=== PATIENT | female | born 1950 | race Caucasian/White ===

== ENCOUNTER 2016-11-22 11:55 | Inpatient (IN) | payer OTHER ==
[~2016-11-22] VITALS: Ht 160 cm; Wt 62.3 kg
[~2016-11-22 11:55] MED LIST: ADV25050 INH; ALBU8.5H5 IH; GEMF600T60 PO; HYDR12.58 PO
[2016-11-22 11:56] VITALS: Ht 160 cm; Wt 62.3 kg
[2016-11-22] MEDS ORDERED: morphine 4 MG/ML VIAL IV STA (12:44)
[2016-11-22] MEDS ORDERED: ONDANSETRON 4 MG INJ IV STA (12:44)
[2016-11-22] MEDS ORDERED: SOD CHLORIDE 0.9% 1,000 ML IV STA (12:44)
--- NOTE | 2016-11-22 12:54 | ERD ---
ER Documentation Chief Complaint Date/Time DATE: 11/22/16 TIME: 12:51 Chief Complaint Complains of abdominal pain HPI 66-year-old female with a history of hypertension, hyperlipidemia presents with lower abdominal pain for the past 2 days. She describes as diffuse, in the suprapubic region, with vomiting one time. She denies fevers or chills, chest pain or shortness of breath. Patient reports that she went to an urgent care and was told to go to the emergency department for evaluation and further testing. ROS All systems reviewed and are negative except as per history of present illness. Medications Home Meds Reported Medications Albuterol Sulfate* (Albuterol Sulfate* HFA) 8.5 Gm Hfa.aer.ad, 2 PUFF IH Q4H Y for WHEEZING AND SOB, EA 06/05/14 Hydrochlorothiazide* (Hydrochlorothiazide*) 12.5 Mg Tablet, 12.5 MG PO DAILY, TAB 05/19/14 Gemfibrozil* (Gemfibrozil*) 600 Mg Tablet, 600 MG PO BID, TAB 05/19/14 Salmeterol Xinaf/Fluticasone* (Advair*) 250-50 Diskus Inhaler, 1 INH INH BID, INH 05/19/14 Allergies Allergies: Coded Allergies: No Known Allergy (Unverified , 06/05/14) PMhx/Soc History of Surgery: Yes (right mastectomy) Anesthesia Reaction: No Hx Neurological Disorder: No Hx Respiratory Disorders: No Hx Cardiac Disorders: Yes (htn,high cholesterol) Hx Psychiatric Problems: No Hx Miscellaneous Medical Probl: No Hx Alcohol Use: No Hx Substance Use: No Hx Tobacco Use: No Smoking Status: Former smoker Physical Exam Vitals Vital Signs Date Time Temp Pulse Resp B/P Pulse Ox O2 Delivery O2 Flow Rate FiO2 11/22/16 11:56 99.7 104 20 156/73 95 Physical Exam General: Well-developed, well-nourished. The patient appears in no acute distress. HEENT: Head is normocephalic, atraumatic. No scleral icterus. It is pupils are equal, round, and reactive. Oral mucous membranes are moist. No pharyngeal erythema. Neck: Supple. Nontender. Lungs: Clear to auscultation. Normal air movement. Heart: Regular rate and rhythm. S1 and S2 are normal. No murmurs, gallops, or rubs. Abdomen: Soft, no masses, Suprapubic tenderness, as well as the left lower quadrant, no rebound or guarding, no peritoneal signs, nondistended. Bowel sounds are normoactive. Extremities: No clubbing or cyanosis. Normal pulses. Moving extremities x 4. No weakness. Neurologic: Alert and oriented 3. No focal deficits. Skin: Normal turgor. No rash or lesions. Result Diagram: 11/22/16 1240 11/22/16 1240 Results 24 hrs Laboratory Tests Test 11/22/16 12:40 11/22/16 13:30 White Blood Count 17.410^3/ul Red Blood Count 4.1510^6/ul Hemoglobin 12.9g/dl Hematocrit 38.2% Mean Corpuscular Volume 92.0fl Mean Corpuscular Hemoglobin 31.1pg Mean Corpuscular Hemoglobin Concent 33.8g/dl Red Cell Distribution Width 13.2% Platelet Count 12547^3/UL Mean Platelet Volume 9.7fl Neutrophils % 84.9% Lymphocytes % 8.2% Monocytes % 6.0% Eosinophils % 0.1% Basophils % 0.3% Nucleated Red Blood Cells % 0.0/100WBC Neutrophils # 14.810^3/ul Lymphocytes # 1.410^3/ul Monocytes # 1.110^3/ul Eosinophils # 0.010^3/ul Basophils # 0.110^3/ul Nucleated Red Blood Cells # 0.010^3/ul Urine Color YELLOW Urine Clarity CLEAR Urine pH 5.0 Urine Specific [place] 1.024 Urine Ketones NEGATIVEmg/dL Urine Nitrite NEGATIVEmg/dL Urine Bilirubin NEGATIVEmg/dL Urine Urobilinogen 2+mg/dL Urine Leukocyte Esterase 2+Isaías/ul Urine Microscopic RBC 3/HPF Urine Microscopic WBC 5/HPF Urine Squamous Epithelial Cells FEW/HPF Urine Renal Epithelial Cells FEW/HPF Urine Mucus FEW/HPF Urine Hemoglobin 1+mg/dL Urine Glucose NEGATIVEmg/dL Urine Total Protein 2+mg/dl Sodium Level 143mmol/L Potassium Level 3.6mmol/L Chloride Level 100mmol/L Carbon Dioxide Level 30mmol/L Anion Gap 17 Blood Urea Nitrogen 13mg/dl Creatinine 1.00mg/dl Glucose Level 105mg/dl Calcium Level 9.8mg/dl Total Bilirubin 0.6mg/dl Direct Bilirubin 0.00mg/dl Indirect Bilirubin 0.6mg/dl Aspartate Amino Transf (AST/SGOT) 21IU/L Alanine Aminotransferase (ALT/SGPT) 33IU/L Alkaline Phosphatase 95IU/L Total Protein 9.1g/dl Albumin 4.7g/dl Globulin 4.40g/dl Albumin/Globulin Ratio 1.06 Lipase 96U/L Lactic Acid Level 0.9mmol/L Current Medications Medications (Trade) Dose Ordered Sig/Tootie Route PRN Reason Start Time Stop Time Status Last Admin Dose Admin Sodium Chloride (NS) 1,000 ml @ 1,000 mls/hr Q1H STAT IV 11/22/16 12:44 11/22/16 13:43 DC 11/22/16 12:51 Morphine Sulfate (morphine) 4 mg ONCE STAT IV 11/22/16 12:44 11/22/16 12:45 DC 11/22/16 12:51 Ondansetron HCl 4 mg 4 mg ONCE STAT IV 11/22/16 12:44 11/22/16 12:45 DC 11/22/16 12:51 Sodium Chloride (NS) 1,000 ml @ 1,000 mls/hr Q1H ONCE IV 11/22/16 13:30 11/22/16 14:29 DC 11/22/16 13:53 IV Flush 10 ml 10 ml STK-MED ONCE .ROUTE 11/22/16 13:52 11/22/16 13:53 DC 11/22/16 14:02 Sodium Chloride (NS) 100 ml @ ud STK-MED ONCE .ROUTE 11/22/16 13:52 11/22/16 13:53 DC 11/22/16 14:02 Iohexol 150 ml 150 ml STK-MED ONCE .ROUTE 11/22/16 13:52 11/22/16 13:53 DC 11/22/16 14:03 Sodium Chloride 1,000 ml @ 1,000 mls/hr Q1H ONCE IV 11/22/16 14:30 11/22/16 15:29 Piperacillin Sod/ Tazobactam Sod (Zosyn 3.375gm/ 100 ml (Pmx)) 100 ml @ 200 mls/hr ONCE ONCE IVPB 11/22/16 14:30 11/22/16 14:59 Patient Name MINDA PASTRANA Study Date 11/22/2016 1:57 PM Patient 1950 Accession No. [id number] Referring Physician DEENA HOYOS PA-C PROCEDURE: CT OF ABDOMEN AND PELVIS ~ CLINICAL INDICATION: Abdominal pain, nausea, vomiting and leukocytosis. TECHNIQUE: CT scan of the abdomen and pelvis with IV contrast. Coronal and sagittal reformatted images were obtained from the axial source images. DLP (mGy.cm): 465.43 CTDlvol (mGy) : 8.66 IV contrast: 90 ml of Omnipaque-300 One or more of the following dose reduction techniques were used: Automated exposure control, adjustment of the mA and/or kV according to patient size or use of iterative reconstruction technique. COMPARISON: CT of the abdomen and pelvis from 06/07/2014. ~ FINDINGS: The appendix is inflamed and enlarged measuring up to 14 mm associated inflammatory changes. There is no periappendiceal abscess or free air. There is no bowel obstruction. The liver is fatty. The kidneys, gallbladder, spleen, pancreas and adrenal glands are all unremarkable. There is no dilation of the biliary tree. There is no abdominal wall hernia or adenopathy. The urinary bladder and the uterus are unremarkable. No ovarian mass is seen. Lung bases are clear. The abdominal aorta has a normal caliber. Right breast implant is partially seen. There are degenerative changes of the lumbar spine. IMPRESSION: 1. Acute appendicitis without periappendiceal abscess. 2. Fatty liver. Critical result of acute appendicitis was reported to MERLYN Geller at 2:25 PM on 11/22 RPTAT: [facility] 12-lead EKG(interpreted by supervising physician): Dr Gardner Rate/Rhythm: sinus tachycardia with rate of 102 QRS, ST, T-waves: Nonspecific ST changes not consistent with acute ischemia, no intervals, no dysrhythmias, no ectopy Impression: No evidence of ischemia or arrhythmia Procedures/MDM 66-year-old female presents with lower abdominal pain for 2 days with fever, anorexia nausea vomiting, CT abdomen pelvis shows a dilated appendix up to 14 mm consistent with acute appendicitis without any periappendiceal abscess or perforation. She had a low-grade temperature tachycardia, with leukocytosis with a white count of 17,000. She was treated emergency department with pain medication including morphine, and was given a fluid bolus and started with Zosyn antibiotics. She was kept during the emergency department course n.p.o., with last p.o. intake at 9 AM this morning. Case was presented to my attending physician Dr. Peterson who agrees with workup treatment, she will be admitted to hospital for surgical evaluation. Patient's blood pressure was elevated (>120/80) but appears stable without evidence of hypertension emergency or urgency. The patient was counseled about the risks of hypertension and urged to pursue outpatient monitoring and therapy within a week with their primary care physician. Departure Diagnosis: Primary Impression: Appendicitis Appendicitis type: acute appendicitis Acute appendicitis type: unspecified acute appendicitis type Qualified Code: K35.80 - Acute appendicitis, unspecified acute appendicitis type Additional Impressions: Leukocytosis SIRS (systemic inflammatory response syndrome) Condition: Stable (Water) ROMAIN GELLER PA-C Nov 22, 2016 12:54
[2016-11-22 12:58] LABS: BASOPHIL # 0.1 10^3/ul (0.0-0.1); BASOPHILS % 0.3 % (0.0-2.0); EOSINOPHILS % 0.1 % (0.0-7.0); HEMATOCRIT 38.2 % (37.0-47.0); HEMOGLOBIN 12.9 g/dl (12.0-16.0); LYMPHOCYTES # 1.4 10^3/ul (0.8-2.9); LYMPHOCYTES % 8.2 % (15.0-51.0); MEAN CORPUSCULAR HEMOGLOBIN 31.1 pg (29.0-33.0); MEAN CORPUSCULAR HGB CONC 33.8 g/dl (32.0-37.0); MEAN PLATELET VOLUME 9.7 fl (7.4-10.4); MONOCYTE # 1.1 10^3/ul (0.3-0.9); NEUTROPHIL # 14.8 10^3/ul (1.6-7.5); NEUTROPHILS % 84.9 % (39.0-77.0); PLATELET COUNT 285 10^3/UL (140-415); RED BLOOD COUNT 4.15 10^6/ul (4.20-5.40); RED CELL DISTRIBUTION WIDTH 13.2 % (11.5-14.5); WHITE BLOOD COUNT 17.4 10^3/ul (4.8-10.8)
[2016-11-22 13:08] LABS: ADD UMIC YES; UR ASCORBIC ACID NEGATIVE (NEGATIVE); UR BILIRUBIN (Dip) NEGATIVE (NEGATIVE); UR BLOOD (Dip) 1+ mg/dL (NEGATIVE); UR CLARITY CLEAR (CLEAR); UR COLOR YELLOW (YELLOW); UR GLUCOSE (Dip) NEGATIVE (NEGATIVE); UR KETONES (Dip) NEGATIVE (NEGATIVE); UR LEUKOCYTE ESTERASE (Dip) 2+ Leu/ul (NEGATIVE); UR MUCUS FEW /HPF (NONE SEEN); UR NITRITE (Dip) NEGATIVE (NEGATIVE); UR RBC 3 /HPF (0-5); UR RENAL EPITHELIAL CELL FEW /HPF (NONE SEEN); UR SPECIFIC GRAVITY (Dip) 1.024 (1.003-1.030); UR SQUAMOUS EPITHELIAL CELL FEW /HPF (FEW); UR TOTAL PROTEIN (Dip) 2+ mg/dl (NEGATIVE); UR UROBILINOGEN (Dip) 2+ mg/dL (NEGATIVE)
[2016-11-22 13:18] LABS: ALBUMIN 4.7 g/dl (3.3-4.9); ALBUMIN/GLOBULIN RATIO 1.06; BILIRUBIN,INDIRECT 0.6 mg/dl (0-1.1); BILIRUBIN,TOTAL 0.6 mg/dl (0.2-1.3); CALCIUM 9.8 mg/dl (8.4-10.2); POTASSIUM 3.6 mmol/L (3.5-5.1); TOTAL PROTEIN 9.1 g/dl (6.1-8.1)
[2016-11-22] MEDS ORDERED: SOD CHLORIDE 0.9% 1,000 ML IV ONE ×2 (13:30→14:30)
[2016-11-22] MEDS ORDERED: IOHEXOL 300MG/ML 150 ML BTL ONE (13:52)
[2016-11-22] MEDS ORDERED: SOD CHLORIDE 0.9% 100 ML ONE (13:52)
[2016-11-22] MEDS ORDERED: PIPER-TAZO 3.375 GM IV (PMX) 100 ML IVPB ONE (14:30)
--- NOTE | 2016-11-22 14:34 | RADRPT ---
PROCEDURE: CT OF ABDOMEN AND PELVIS CLINICAL INDICATION: Abdominal pain, nausea, vomiting and leukocytosis. TECHNIQUE: CT scan of the abdomen and pelvis with IV contrast. Coronal and sagittal reformatted imag es were obtained from the axial source images. DLP (mGy.cm): 465.43 CTDlvol (mGy) : 8.66 IV contrast: 90 ml of Omnipaque-300 One or more of the following dose reduction techniques were used: Automated exposure control, adjus tment of the mA and/or kV according to patient size or use of iterative reconstruction technique. COMPARISON: CT of the abdomen and pelvis from 06/07/2014. FINDINGS: The appendix is inflamed and enlarged measuring up to 14 mm associated inflammatory changes. There i s no periappendiceal abscess or free air. There is no bowel obstruction. The liver is fatty. The kidneys, gallbladder, spleen, pancreas and adrenal glands are all unremarkab le. There is no dilation of the biliary tree. There is no abdominal wall hernia or adenopathy. The urinary bladder and the uterus are unremarkable. No ovarian mass is seen. Lung bases are clear. The abdominal aorta has a normal caliber. Right breast implant is partially seen. There are degenerative changes of the lumbar spine. IMPRESSION: 1. Acute appendicitis without periappendiceal abscess. 2. Fatty liver. Critical result of acute appendicitis was reported to MERLYN Geller at 2:25 PM on 11/22/2016 RPTAT: [facility] .Ford Mann MD, MD Date Time Electronically viewed and signed by .Ford Mann MD, MD on 11/22/2016 14:33 .Z/
[2016-11-22 14:55] LABS: INR 1.03; PARTIAL THROMBOPLASTIN TIME 31.7 Sec (25.0-35.0); PROTIME 13.5 Sec (12.2-14.2); PT RATIO 1.1
[2016-11-22] MEDS ORDERED: D5W-0.45 NACL + KCL 20 MEQ 1,000 ML IV SCH (15:13)
--- NOTE | 2016-11-22 15:13 | EN ---
Date/Time of Note Date/Time of Note DATE: 11/22/16 TIME: 15:06 ER Progress Note DOCUMENTS REVIEWED: ED nurse, prior records PROCEDURES: EKG: Time: 14: 32. Sinus tachycardia. Ventricular rate 102. Nonspecific ST changes. No acute ST segment elevation or depression. Normal DC and QRS. No ectopy. EP interpretation: Abnormal ECG. CT OF ABDOMEN AND PELVIS CLINICAL INDICATION: Abdominal pain, nausea, vomiting and leukocytosis. TECHNIQUE: CT scan of the abdomen and pelvis with IV contrast. Coronal and sagittal reformatted images were obtained from the axial source images. DLP (mGy.cm): 465.43 CTDlvol (mGy) : 8.66 IV contrast: 90 ml of Omnipaque-300 One or more of the following dose reduction techniques were used: Automated exposure control, adjustment of the mA and/or kV according to patient size or use of iterative reconstruction technique. COMPARISON: CT of the abdomen and pelvis from 06/07/2014. FINDINGS: The appendix is inflamed and enlarged measuring up to 14 mm associated inflammatory changes. There is no periappendiceal abscess or free air. There is no bowel obstruction. The liver is fatty. The kidneys, gallbladder, spleen, pancreas and adrenal glands are all unremarkable. There is no dilation of the biliary tree. There is no abdominal wall hernia or adenopathy. The urinary bladder and the uterus are unremarkable. No ovarian mass is seen. Lung bases are clear. The abdominal aorta has a normal caliber. Right breast implant is partially seen. There are degenerative changes of the lumbar spine. IMPRESSION: 1. Acute appendicitis without periappendiceal abscess. 2. Fatty liver. Critical result of acute appendicitis was reported to MERLYN Geller at 2:25 PM on 11/22 RPTAT: [facility] .Ford Mann MD, MD Date Time Electronically viewed and signed by .Ford Mann MD, on 11/22/2016 14:33 Chest x-ray: AP portable: Cardiac silhouette is normal. The costophrenic angles are clear. No abnormalities of the bony thorax. No effusions or infiltrates. EP interpretation: No acute disease. [employer] DECISION MAKIN-year-old female, hypertensive, hyperlipidemic with history of breast cancer status post right mastectomy presents to the ED complaining of a 2 day history of worsening lower abdominal pain with nausea and vomiting. physical examination she is afebrile with mild distress due to pain. There is left greater than right lower quadrant tenderness but no rebound or guarding. Bowel sounds are present. CT reveals acute appendicitis without perforation or abscess. Leukocytosis with WBC of 17,400. Zosyn given. Last PO at 9:00AM. Patient with acute appendicitis will be admitted for urgent surgical evaluation. Counseled patient and family regarding diagnosis, diagnostic results and plan for admission. CALLS/CONSULTS: Time 14:35. Dr. Badillo Recommends admission and surgical consultation. CALLS/CONSULTS: Time: 15:00, Dr. Barnard. Will consult. PATIENT CARE TRANSITIONED: Time: 15:00. SAMUEL Galaviz MD Nov 22, 2016 15:13
[2016-11-22] MEDS ORDERED: ACETAMINOPHEN 325 MG TAB PO PRN (15:30)
[2016-11-22] MEDS ORDERED: ONDANSETRON 4 MG INJ IV PRN ×2 (15:30→17:30)
[2016-11-22] MEDS ORDERED: LISI1TAB4 PO (15:50)
[2016-11-22] MEDS ORDERED: CALC600T24 PO (15:51)
[2016-11-22] MEDS ORDERED: ASC500 PO (15:51)
[2016-11-22] MEDS ORDERED: VITA150T PO (15:52)
--- NOTE | 2016-11-22 16:07 | RADRPT ---
PROCEDURE: CHEST RADIOGRAPH CLINICAL INDICATION: Abdominal pain. TECHNIQUE: Single frontal view of the chest were obtained. COMPARISON: 06/05/2014. FINDINGS: There is no consolidation or pleural effusion. There is no pneumothorax. The cardiomediastinal stru ctures unremarkable. The visualized bony structures are unremarkable. IMPRESSION: Unremarkable single-view chest radiograph. RPTAT: [facility] .Ford Mann MD, MD Date Time Electronically viewed and signed by .Ford Mann MD, on 11/22/2016 16:06 .Z/
[2016-11-22 17:15] VITALS: BP 142/67; PULSE 86; RESP 18
--- NOTE | 2016-11-22 17:18 | HP ---
Date/Time of Note Date/Time of Note DATE: 11/22/16 TIME: 17:07 Assessment/Plan VTE Prophylaxis VTE Prophylaxis Intervention: SCD's Lines/Catheters Urinary Cath still in place: No Assessment/Plan Assessment/Plan 66-year-old female with: 1. Acute appendicitis: Per clinical and radiographic findings, patient with white blood cell count of 17 and abdominal pain with anorexia. Continue Zosyn, continue IV fluids, keep patient n.p.o.. Chest x-ray, EKG within normal limits, no previous history of cardiac disease. Patient is considered a low risk for complication based on her current clinical status and history. No additional studies needed. General surgery consult, Dr. Barnard, follow-up recommendations. Patient kept n.p.o. for possible surgical intervention. Of note she has voiced that she seems to have a hard time with anesthesia, after her last surgery she was having nausea vomiting for approximately 3 days secondary to anesthesia. 2. Right breast cancer, status post mastectomy and reconstructive surgery. Stable 3. Hypertension: Resume home medication once able to take p.o. 4. Hyperlipidemia: Resume gemfibrozil once able to take p.o., check fasting lipid panel in a.m. Prophylaxis: Pepcid for GI prophylaxis, SCDs for DVT prophylaxis Disposition: Keep n.p.o., IV fluids, IV antibiotics, surgical evaluation pending for possible surgical intervention. HPI/ROS Admit Date/Time Admit Date/Time Hx of Present Illness Chief complaint: Abdominal pain History of presenting illness: This is a 66-year-old female with history of right breast cancer status post mastectomy in 2014 followed by reconstructive surgery by 2017, no previous chemotherapy needed, has been in her usual state of health until approximately 2 days ago when she started having abdominal pain. Patient reports that she had periumbilical pain at first 48 hours ago progressed to be mostly on her lower abdomen and by today he was more on the right lower quadrant area. She has been having nausea and vomiting at onset of the pain, since then she has had nausea, decreased p.o. intake, anorexia, fevers up to 101.6 over the past 48 hours. In the emergency department she had a CAT scan of the abdomen and pelvis and was diagnosed with acute appendicitis with no perforation. Patient is started on Zosyn along with IV fluids, she will be kept n.p.o. General surgery consult pending. Dr. Barnard was contacted in the emergency department by the ER physician Dr. Nicholas DOE Constitutional: febrile Eyes: no complaints ENT: no complaints Respiratory: no complaints Cardiovascular: no complaints Gastrointestinal: decreased appetite, nausea, pain (Right lower quadrant more pronounced than left lower), vomiting Genitourinary: no complaints Musculoskeletal: no complaints Skin: no complaints Neurologic: no complaints Endocrine: no complaints Lymphatic: no complaints Psychological: no complaints PMH/Family/Social Past Medical History Right breast cancer Past Surgical History Status post radical right mastectomy 2014 followed by reconstructive surgery and implant in February 2016 remotely Family History Significant Family History: no pertinent family hx Social History Alcohol Use: none Smoking Status: Former smoker Drug Use: none Exam/Review of Systems Vital Signs Vitals Vital Signs Date Time Temp Pulse Resp B/P Pulse Ox O2 Delivery O2 Flow Rate FiO2 11/22/16 11:56 99.7 104 20 156/73 95 Exam Constitutional: alert, oriented, well developed Psych: no complaints Head: normocephalic Eyes: nl conjunctiva ENMT: nl external ears & nose, nl lips & teeth, nl nasal mucosa & septum Respiratory: clear to auscultation, normal air movement Cardiovascular: nl pulses, regular rate and rhythm Gastrointestinal: bowel sounds (Hypoactive), soft, tender (Right lower quadrant more pronounced in left lower quadrant) Musculoskeletal: nl extremities to inspection, nl gait and stance Extremities: normal pulses, other (No edema, clubbing or cyanosis) Neurological: [employer]AGE [employer] II-XII intact, nl mental status, nl speech, nl strength Labs Result Diagram: 11/22/16 1240 11/22/16 1240 Medications Medications Current Medications Potassium Chloride/Dextrose/ Sod Cl (D5-1/2ns + KCl 20 Meq) 1,000 ml @ 125 mls/ hr Q8H IV ; Start 11/22/16 at 15:13; Stop 11/22/16 at 23:12 Albuterol (Ventolin Hfa) 2 puff Q4H PRN INH WHEEZING AND SOB; Start 11/22/16 at 17:30; Status UNV Salmeterol Xinafoate/ Fluticasone (Advair 250/50 Diskus) 1 inh BID INH ; Start 11/22/16 at 21:00; Status UNV Ondansetron HCl (Zofran Inj) 4 mg Q6H PRN IV NAUSEA AND/OR VOMITING; Start at 17:30; Status UNV Acetaminophen (Tylenol Tab) 650 mg Q6H PRN PO PAIN LEVEL 1-3 OR FEVER; Start 11/22/16 at 17:30; Status UNV Acetaminophen (Tylenol Supp) 650 mg Q6H PRN W[place] PAIN LEVEL 1-3 OR FEVER; Start 11/22/16 at 17:30; Status UNV Morphine Sulfate (morphine) 2 mg Q4H PRN IV SEVERE PAIN LEVEL 7-10; Start at 17:30; Status UNV Famotidine 20 mg 20 mg Q12 IV ; Start 11/22/16 at 21:00; Status UNV Potassium Chloride/Dextrose/ Sod Cl 1,000 ml @ 100 mls/hr Q10H IV ; Start at 17:30; Status UNV Piperacillin Sod/ Tazobactam Sod (Zosyn 3.375gm/ 100 ml (Pmx)) 100 ml @ 200 mls /hr Q8 IVPB ; Start 11/22/16 at 22:00; Status UNV Procedures Procedures PROCEDURE: CT OF ABDOMEN AND PELVIS CLINICAL INDICATION: Abdominal pain, nausea, vomiting and leukocytosis. TECHNIQUE: CT scan of the abdomen and pelvis with IV contrast. Coronal and sagittal reformatted images were obtained from the axial source images. DLP (mGy.cm): 465.43 CTDlvol (mGy) : 8.66 IV contrast: 90 ml of Omnipaque-300 One or more of the following dose reduction techniques were used: Automated exposure control, adjustment of the mA and/or kV according to patient size or use of iterative reconstruction technique. COMPARISON: CT of the abdomen and pelvis from 06/07/2014. FINDINGS: The appendix is inflamed and enlarged measuring up to 14 mm associated inflammatory changes. There is no periappendiceal abscess or free air. There is no bowel obstruction. The liver is fatty. The kidneys, gallbladder, spleen, pancreas and adrenal glands are all unremarkable. There is no dilation of the biliary tree. There is no abdominal wall hernia or adenopathy. The urinary bladder and the uterus are unremarkable. No ovarian mass is seen. Lung bases are clear. The abdominal aorta has a normal caliber. Right breast implant is partially seen. There are degenerative changes of the lumbar spine. IMPRESSION: 1. Acute appendicitis without periappendiceal abscess. 2. Fatty liver. Critical result of acute appendicitis was reported to MERLYN Geller at 2:25 PM on 11/22 RPTAT: [facility] .Ford Mann MD, MD Date Time Electronically viewed and signed by .Ford Mann MD, on 11/22/2016 14:33 EKG: Sinus rhythm, slight tachycardia, no acute ischemic or chronic ischemic changes .Z/ CC: ROMAIN GELLER PA-C PROCEDURE: CHEST RADIOGRAPH CLINICAL INDICATION: Abdominal pain. TECHNIQUE: Single frontal view of the chest were obtained. COMPARISON: 06/05/2014. FINDINGS: There is no consolidation or pleural effusion. There is no pneumothorax. The cardiomediastinal structures unremarkable. The visualized bony structures are unremarkable. IMPRESSION: Unremarkable single-view chest radiograph. RPTAT: [facility] .Ford Mann MD, Date Time Electronically viewed and signed by .Ford Mann MD, on 11/22/2016 16:06 CRISTINA ESQUIVEL Nov 22, 2016 17:17
[2016-11-22] MEDS ORDERED: ACETAMINOPHEN 650 MG SUPP PR PRN (17:30)
[2016-11-22] MEDS ORDERED: ALBUTEROL 18 GM INHALER INH PRN (17:30)
[2016-11-22] MEDS ORDERED: hydrALAzine 20 MG INJ IV PRN (17:30)
[2016-11-22] MEDS ORDERED: NACL 0.9% 3 ML SYG IV SCH (17:30)
[2016-11-22] MEDS ORDERED: morphine 2 MG INJ IV PRN (17:30)
[2016-11-22] MEDS: D5W-0.45 NACL + KCL 20 MEQ 1,000 ML IV SCH (17:40)
--- NOTE | 2016-11-22 18:27 | CONS ---
Date/Time of Note Date/Time of Note DATE: 11/22/16 TIME: 18:19 Assessment/Plan Assessment/Plan Chief Complaint/Hosp Course 1. Abdominal pain with leukocytosis and CT diagnosis of acute appendicitis. Patient was offered operative versus medical treatment. She was given risks and his alternatives. She was also advised about the recurrence rate if she continues with medical treatment. She was also advised that if medical treatment does not improve her situation she may need to proceed with surgery or she may perforate in the meantime. At this time once again she continues to desire medical management and avoid operative treatment. -IV antibiotics -IV fluids -Out of bed ambulate 2. Hypertension -Diet and medication optimization 3. Hyperlipidemia -Diet and medication optimization 4. History of breast cancer with mastectomy and reconstruction -Routine follow-ups with oncology and her primary surgeon Thank you very much for consulting me this patient's care, Problems: Consultation Date/Type/Reason Admit Date/Time Date of Consultation: Nov 22, 2016 Type of Consultation: General surgical Reason for Consultation Abdominal pain Acute appendicitis Leukocytosis Referring Provider: SAMUEL EDOUARD MD Hx of Present Illness Hiwot Dhaliwal is a 66yo female started having periumbilical abdominal pain 2 days ago which has now progressed to the lower abdomen bilaterally. She has been having nausea and vomiting at onset of the pain, since then she has had nausea, decreased p.o. intake, anorexia, fevers up to 101.6 over the past 48 hours. In the emergency department she had a CAT scan of the abdomen and pelvis and was diagnosed with acute appendicitis with no perforation. She has had chills as well. Denies any chest pain or shortness of breath. Denies any cough, seizure, visual or neurologic changes. Surgical consult was obtained for further evaluation. 12 point review of systems negative unless addressed in HPI Eyes: no complaints ENT: no complaints Respiratory: no complaints Cardiovascular: no complaints Gastrointestinal: decreased appetite, nausea, pain (Right lower quadrant more pronounced than left lower), vomiting Genitourinary: no complaints Musculoskeletal: no complaints Skin: no complaints Neurologic: no complaints Lymphatic: no complaints Psychological: no complaints Past Medical History Right breast cancer Hypertension Hyperlipidemia Leukocytosis with acute appendicitis Past Surgical History Status post radical right mastectomy 2014 followed by reconstructive surgery and implant in February 2016 Family History Significant Family History: no pertinent family hx Social History Alcohol Use: none Smoking Status: Former smoker Drug Use: none Exam/Review of Systems Vital Signs Vitals Vital Signs Date Time Temp Pulse Resp B/P Pulse Ox O2 Delivery O2 Flow Rate FiO2 11/22/16 11:56 99.7 104 20 156/73 95 Exam Constitutional: alert, oriented, No distress Psych: nl mood/affect, No anxiety, No confusion Head: atraumatic, normocephalic Eyes: EOMI, PERRL, nl conjunctiva, No icteric ENMT: mucosa pink and moist, nl external ears & nose, nl lips & teeth Neck: non-tender, supple, No jvd Respiratory: normal air movement, No congested cough, No labored breathing Cardiovascular: regular rate and rhythm, No edema Gastrointestinal: soft, tender, No firm, No rebound or guarding Musculoskeletal: nl extremities to inspection, nl gait and stance, No joint tenderness Extremities: normal pulses, No calf tenderness, No cyanosis Neurological: nl mental status, nl speech, nl strength Skin: nl turgor, No diaphoresis, No ecchymosis, No rash or lesions Lymph: nl lymph nodes, nontender Results Result Diagram: 11/22/16 1240 11/22/16 1240 Results 24 hrs Laboratory Tests Test 11/22/16 12:40 11/22/16 12:47 11/22/16 13:30 White Blood Count 17.4 #H Red Blood Count 4.15 L Hemoglobin 12.9 # Hematocrit 38.2 # Mean Corpuscular Volume 92.0 Mean Corpuscular Hemoglobin 31.1 Mean Corpuscular Hemoglobin Concent 33.8 Red Cell Distribution Width 13.2 Platelet Count 285 Mean Platelet Volume 9.7 # Neutrophils % 84.9 H Lymphocytes % 8.2 L Monocytes % 6.0 Eosinophils % 0.1 Basophils % 0.3 Nucleated Red Blood Cells % 0.0 Neutrophils # 14.8 H Lymphocytes # 1.4 Monocytes # 1.1 H Eosinophils # 0.0 Basophils # 0.1 Nucleated Red Blood Cells # 0.0 Urine Color YELLOW Urine Clarity CLEAR Urine pH 5.0 Urine Specific [place] 1.024 Urine Ketones NEGATIVE Urine Nitrite NEGATIVE Urine Bilirubin NEGATIVE Urine Urobilinogen 2+ H Urine Leukocyte Esterase 2+ H Urine Microscopic RBC 3 Urine Microscopic WBC 5 Urine Squamous Epithelial Cells FEW Urine Renal Epithelial Cells FEW A Urine Mucus FEW A Urine Hemoglobin 1+ H Urine Glucose NEGATIVE Urine Total Protein 2+ H Sodium Level 143 Potassium Level 3.6 Chloride Level 100 Carbon Dioxide Level 30 Anion Gap 17 H Blood Urea Nitrogen 13 Creatinine 1.00 Glucose Level 105 Calcium Level 9.8 Total Bilirubin 0.6 Direct Bilirubin 0.00 Indirect Bilirubin 0.6 Aspartate Amino Transf (AST/SGOT) 21 Alanine Aminotransferase (ALT/SGPT) 33 Alkaline Phosphatase 95 Total Protein 9.1 H Albumin 4.7 Globulin 4.40 H Albumin/Globulin Ratio 1.06 Lipase 96 Prothrombin Time 13.5 Prothrombin Time Ratio 1.1 INR International Normalized Ratio 1.03 Activated Partial Thromboplast Time 31.7 Lactic Acid Level 0.9 Medications Medications Current Medications Salmeterol Xinafoate/ Fluticasone (Advair 250/50 Diskus) 1 inh BID INH ; Start 11/22/16 at 21:00 Ondansetron HCl (Zofran Inj) 4 mg Q6H PRN IV NAUSEA AND/OR VOMITING; Start at 17:30 Acetaminophen (Tylenol Tab) 650 mg Q6H PRN PO PAIN LEVEL 1-3 OR FEVER; Start 11/22/16 at 17:30 Acetaminophen (Tylenol Supp) 650 mg Q6H PRN [place] PAIN LEVEL 1-3 OR FEVER; Start 11/22/16 at 17:30 Morphine Sulfate (morphine) 2 mg Q4H PRN IV SEVERE PAIN LEVEL 7-10; Start at 17:30 Famotidine 20 mg 20 mg Q12 IV ; Start 11/22/16 at 21:00 Potassium Chloride/Dextrose/ Sod Cl 1,000 ml @ 100 mls/hr Q10H IV Last administered on 11/22/16t 17:40; Admin Dose 100 MLS/HR; Start 11/22/16 at 17: 30 Piperacillin Sod/ Tazobactam Sod (Zosyn 3.375gm/ 100 ml (Pmx)) 100 ml @ 200 mls /hr Q8 IVPB ; Start 11/22/16 at 22:00 Hydralazine HCl (Apresoline) 10 mg Q8H PRN IV SBP GREATER THAN 160; Start at 17:30 RONY PERRY MD Nov 22, 2016 18:26
[2016-11-22 20:00] VITALS: BP 139/66; RESP 20
[2016-11-22] MEDS: FAMOTIDINE 20 MG INJ IV SCH (20:12)
[2016-11-22] MEDS: ACETAMINOPHEN 325 MG TAB PO PRN (20:12)
[2016-11-22] MEDS: SALMETEROL/FLUTICASONE 250/50 INHA INH SCH (21:00)
[2016-11-22] MEDS: PIPER-TAZO 3.375 GM IV (PMX) 100 ML IVPB SCH (21:29)
[2016-11-23 02:00] VITALS: BP 125/59; PULSE 69; RESP 18; RESP 20
[2016-11-23] MEDS: D5W-0.45 NACL + KCL 20 MEQ 1,000 ML IV SCH ×3 (03:30→16:55)
[2016-11-23] MEDS: SALMETEROL/FLUTICASONE 250/50 INHA INH SCH ×3 (04:19→19:50)
[2016-11-23] MEDS: PIPER-TAZO 3.375 GM IV (PMX) 100 ML IVPB SCH ×3 (05:15→21:36)
[2016-11-23 06:24] LABS: BASOPHILS % 0.3 % (0.0-2.0); EOSINOPHILS # 0.1 10^3/ul (0.0-0.5); EOSINOPHILS % 0.8 % (0.0-7.0); HEMATOCRIT 31.6 % (37.0-47.0); HEMOGLOBIN 10.5 g/dl (12.0-16.0); LYMPHOCYTES # 1.8 10^3/ul (0.8-2.9); LYMPHOCYTES % 13.3 % (15.0-51.0); MEAN CORPUSCULAR HEMOGLOBIN 31.1 pg (29.0-33.0); MEAN CORPUSCULAR HGB CONC 33.2 g/dl (32.0-37.0); MEAN CORPUSCULAR VOLUME 93.5 fl (82.0-101.0); MEAN PLATELET VOLUME 10.6 fl (7.4-10.4); MONOCYTE # 0.8 10^3/ul (0.3-0.9); MONOCYTES % 6.3 % (0.0-11.0); NEUTROPHIL # 10.4 10^3/ul (1.6-7.5); NEUTROPHILS % 78.9 % (39.0-77.0); PLATELET COUNT 228 10^3/UL (140-415); RED BLOOD COUNT 3.38 10^6/ul (4.20-5.40); RED CELL DISTRIBUTION WIDTH 13.4 % (11.5-14.5); WHITE BLOOD COUNT 13.2 10^3/ul (4.8-10.8)
[2016-11-23 07:13] LABS: ALBUMIN 3.6 g/dl (3.3-4.9); BILIRUBIN,INDIRECT 0.5 mg/dl (0-1.1); BILIRUBIN,TOTAL 0.5 mg/dl (0.2-1.3); CALCIUM 8.5 mg/dl (8.4-10.2); CREATININE 0.92 mg/dl (0.44-1.00); POTASSIUM 3.8 mmol/L (3.5-5.1); TOTAL PROTEIN 7.2 g/dl (6.1-8.1)
[2016-11-23 07:51] VITALS: BP 101/52; RESP 19
[2016-11-23 08:03] LABS: PHOSPHORUS 2.5 mg/dl (2.5-4.9)
[2016-11-23] MEDS: FAMOTIDINE 20 MG INJ IV SCH ×2 (08:20→19:50)
[2016-11-23 14:00] VITALS: BP 124/58; RESP 18
--- NOTE | 2016-11-23 15:31 | PN ---
Date/Time of Note Date/Time of Note DATE: 11/23/16 TIME: 15:07 Assessment/Plan VTE Prophylaxis VTE Prophylaxis Intervention: SCD's Lines/Catheters IV Catheter Type (from Nrs): Peripheral IV Urinary Cath still in place: No Assessment/Plan Assessment/Plan 66-year-old female with: 1. Acute appendicitis: Per clinical and radiographic findings, patient hesitant to undergo surgery yesterday, she was given option to stay on IV antibiotics. WBC trending down, still with lower abdominal pain, right> left, she will readdress options with Dr. Barnard today, from the medical standpoint were advocating for laparoscopic appendectomy but the patient again was hesitant yesterday, she seems to be more receptive today. Continue Zosyn, continue IV fluids, keep patient n.p.o. for possible surgical intervention or until cleared to eat from surgical standpoint. Chest x-ray, EKG within normal limits, no previous history of cardiac disease. Patient is considered a low risk for complication based on her current clinical status and history. No additional studies needed. General surgery consult, Dr. Barnard, follow-up recommendations. Of note she has voiced that she seems to have a hard time with anesthesia, after her last surgery she was having nausea vomiting for approximately 3 days secondary to anesthesia. 2. Right breast cancer, status post mastectomy and reconstructive surgery. Stable 3. Hypertension: Resume home medication once able to take p.o. 4. Hyperlipidemia: Resume gemfibrozil once able to take p.o., Prophylaxis: Pepcid for GI prophylaxis, SCDs for DVT prophylaxis Disposition: Keep n.p.o., IV fluids, IV antibiotics, surgical evaluation pending for possible surgical intervention versus medical management only if patient keeps refusing surgery. Subjective 24 Hr Interval Summary Free Text/Dictation Patient doing fairly well, she is having abdominal pain still, lower abdomen, WBC trending down. She is n.p.o. for now, she is on IV antibiotics, she will re-discussed options with Dr. Barnard regarding laparoscopic appendectomy. Continue IV antibiotics for now Exam/Review of Systems Vital Signs Vitals Vital Signs Date Time Temp Pulse Resp B/P Pulse Ox O2 Delivery O2 Flow Rate FiO2 11/23/16 14:00 98.1 67 18 124/58 97 11/23/16 02:00 Room Air Intake and Output 11/22/16 11/22/16 11/23/16 15:00 23:00 07:00 Intake Total 100 ml 1400 ml Output Total 900 ml Balance 100 ml 500 ml Exam Constitutional: alert, oriented, well developed Respiratory: clear to auscultation, normal air movement Cardiovascular: nl pulses, regular rate and rhythm Gastrointestinal: soft, tender (Lower abdomen, more pronounced right lower, patient feels bloated) Musculoskeletal: nl extremities to inspection Extremities: normal pulses, other (No edema, clubbing or cyanosis) Neurological: 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 ARCHITECT II-XII intact, nl mental status, nl speech, nl strength Results Result Diagram: 11/23/1645411/23/16454 Results 24 hrs Laboratory Tests Test 11/23/16 04:55 White Blood Count 13.2 #H Red Blood Count 3.38 L Hemoglobin 10.5 L Hematocrit 31.6 L Mean Corpuscular Volume 93.5 Mean Corpuscular Hemoglobin 31.1 Mean Corpuscular Hemoglobin Concent 33.2 Red Cell Distribution Width 13.4 Platelet Count 228 Mean Platelet Volume 10.6 H Neutrophils % 78.9 H Lymphocytes % 13.3 L Monocytes % 6.3 Eosinophils % 0.8 Basophils % 0.3 Nucleated Red Blood Cells % 0.0 Neutrophils # 10.4 H Lymphocytes # 1.8 Monocytes # 0.8 Eosinophils # 0.1 Basophils # 0.0 Nucleated Red Blood Cells # 0.0 Sodium Level 143 Potassium Level 3.8 Chloride Level 108 Carbon Dioxide Level 26 Anion Gap 13 Blood Urea Nitrogen 8 Creatinine 0.92 Glucose Level 119 Calcium Level 8.5 Phosphorus Level 2.5 Magnesium Level 2.0 Total Bilirubin 0.5 Direct Bilirubin 0.00 Indirect Bilirubin 0.5 Aspartate Amino Transf (AST/SGOT) 24 Alanine Aminotransferase (ALT/SGPT) 28 Alkaline Phosphatase 120 Total Protein 7.2 # Albumin 3.6 # Globulin 3.60 H Albumin/Globulin Ratio 1.00 Triglycerides Level 188 H Cholesterol Level 168 LDL Cholesterol, Calculated 102 HDL Cholesterol 28 L Cholesterol/HDL Ratio 6.0 Medications Medications Current Medications Salmeterol Xinafoate/ Fluticasone (Advair 250/50 Diskus) 1 inh BID INH Last administered on 11/23/16t 04:19; Admin Dose 1 INH; Start 11/22/16 at 21:00 Ondansetron HCl (Zofran Inj) 4 mg Q6H PRN IV NAUSEA AND/OR VOMITING; Start at 17:30 Acetaminophen (Tylenol Tab) 650 mg Q6H PRN PO PAIN LEVEL 1-3 OR FEVER Last administered on 11/22/16 20:12; Admin Dose 650 MG; Start 11/22/16 at 17:30 Acetaminophen (Tylenol Supp) 650 mg Q6H PRN [place] PAIN LEVEL 1-3 OR FEVER; Start 11/22/16 at 17:30 Morphine Sulfate (morphine) 2 mg Q4H PRN IV SEVERE PAIN LEVEL 7-10 Last administered on 11/23/16 12:44; Admin Dose 2 MG; Start 11/22/16 at 17:30 Famotidine 20 mg 20 mg Q12 IV Last administered on 11/23/16 08:20; Admin Dose 20 MG; Start 11/22/16 at 21:00 Potassium Chloride/Dextrose/ Sod Cl 1,000 ml @ 100 mls/hr Q10H IV Last administered on 11/23/16 04:12; Admin Dose 100 MLS/HR; Start 11/22/16 at 17: 30 Piperacillin Sod/ Tazobactam Sod (Zosyn 3.375gm/ 100 ml (Pmx)) 100 ml @ 200 mls /hr Q8 IVPB Last administered on 11/23/16 13:54; Admin Dose 200 MLS/HR; Start 11/22/16 at 22:00 Hydralazine HCl (Apresoline) 10 mg Q8H PRN IV SBP GREATER THAN 160; Start at 17:30 CRISTINA ESQUIVEL Nov 23, 2016 15:18
[2016-11-23 20:00] VITALS: BP 150/67; RESP 17
--- NOTE | 2016-11-23 23:57 | PN ---
Date/Time of Note Date/Time of Note DATE: 11/23/16 TIME: 23:57 Assessment/Plan Lines/Catheters IV Catheter Type (from [facility]): Peripheral IV [facility] in Place (from [facility]): No Assessment/Plan Chief Complaint/Hosp Course 1. Abdominal pain with leukocytosis and CT diagnosis of acute appendicitis. Patient was offered operative versus medical treatment. She was given risks and his alternatives. She was also advised about the recurrence rate if she continues with medical treatment. She was also advised that if medical treatment does not improve her situation she may need to proceed with surgery or she may perforate in the meantime. At this time once again she continues to desire medical management and avoid operative treatment. -IV antibiotics -IV fluids -Out of bed ambulate 2. Hypertension -Diet and medication optimization 3. Hyperlipidemia -Diet and medication optimization 4. History of breast cancer with mastectomy and reconstruction -Routine follow-ups with oncology and her primary surgeon Thank you very much for consulting me this patient's care, Problems: Exam/Review of Systems Vital Signs Vitals Vital Signs Date Time Temp Pulse Resp B/P Pulse Ox O2 Delivery O2 Flow Rate FiO2 11/23/16 20:00 98.8 70 17 150/67 95 11/23/16 02:00 Room Air Intake and Output 11/22/16 11/22/16 11/23/16 15:00 23:00 07:00 Intake Total 100 ml 1400 ml Output Total 900 ml Balance 100 ml 500 ml Results Result Diagram: 11/23/16 0455 11/23/16 0455 RONY PERRY MD Nov 23, 2016 23:57
--- NOTE | 2016-11-24 00:09 | PN ---
Date/Time of Note Date/Time of Note DATE: 11/24/16 TIME: 00:06 Assessment/Plan Lines/Catheters IV Catheter Type (from [facility]): Peripheral IV [facility] in Place (from [facility]): No Assessment/Plan Chief Complaint/Hosp Course 1. Abdominal pain with leukocytosis and CT diagnosis of acute appendicitis. Patient was offered operative versus medical treatment. At this time she continues to desire medical management and avoid operative treatment. -IV antibiotics -IV fluids -Out of bed ambulate 2. Hypertension -Diet and medication optimization 3. Hyperlipidemia -Diet and medication optimization 4. History of breast cancer with mastectomy and reconstruction -Routine follow-ups with oncology and her primary surgeon Thank you, Problems: Subjective 24 Hr Interval Summary Pain improving (6 from an 8 yesterday). Minimal flatus. No fevers or chills. No nausea vomiting. No chest pain. No shortness of breath. No cough. No seizure. No blood per mouth or rectum. No dysuria. Exam/Review of Systems Vital Signs Vitals Vital Signs Date Time Temp Pulse Resp B/P Pulse Ox O2 Delivery O2 Flow Rate FiO2 11/23/16 20:00 98.8 70 17 150/67 95 11/23/16 02:00 Room Air Intake and Output 11/23/16 11/23/16 11/24/16 15:00 23:00 07:00 Intake Total 100 ml 1120 ml Balance 100 ml 1120 ml Exam Free Text/Dictation Constitutional: alert, oriented, No distress Psych: nl mood/affect, No anxiety, No confusion Head: atraumatic, normocephalic Eyes: EOMI, PERRL, nl conjunctiva, No icteric ENMT: mucosa pink and moist, nl external ears & nose, nl lips & teeth Neck: non-tender, supple, No jvd Respiratory: normal air movement, No congested cough, No labored breathing Cardiovascular: regular rate and rhythm, No edema Gastrointestinal: soft, tender, No firm, No rebound or guarding Musculoskeletal: nl extremities to inspection, nl gait and stance, No joint tenderness Extremities: normal pulses, No calf tenderness, No cyanosis Neurological: nl mental status, nl speech, nl strength Skin: nl turgor, No diaphoresis, No ecchymosis, No rash or lesions Lymph: nl lymph nodes, nontender Results Result Diagram: 11/23/16 0455 11/23/16 045 RONY PERRY MD Nov 24, 2016 00:08
[2016-11-24 02:00] VITALS: BP 119/58; RESP 17
[2016-11-24] MEDS: D5W-0.45 NACL + KCL 20 MEQ 1,000 ML IV SCH ×3 (03:54→19:30)
[2016-11-24] MEDS: PIPER-TAZO 3.375 GM IV (PMX) 100 ML IVPB SCH ×3 (05:33→21:39)
[2016-11-24 05:41] LABS: BASOPHILS % 0.3 % (0.0-2.0); EOSINOPHILS # 0.2 10^3/ul (0.0-0.5); EOSINOPHILS % 2.5 % (0.0-7.0); HEMATOCRIT 29.4 % (37.0-47.0); HEMOGLOBIN 9.5 g/dl (12.0-16.0); LYMPHOCYTES # 1.1 10^3/ul (0.8-2.9); LYMPHOCYTES % 12.3 % (15.0-51.0); MEAN CORPUSCULAR HEMOGLOBIN 30.5 pg (29.0-33.0); MEAN CORPUSCULAR HGB CONC 32.3 g/dl (32.0-37.0); MEAN CORPUSCULAR VOLUME 94.5 fl (82.0-101.0); MEAN PLATELET VOLUME 10.3 fl (7.4-10.4); MONOCYTE # 0.6 10^3/ul (0.3-0.9); MONOCYTES % 7.3 % (0.0-11.0); NEUTROPHIL # 6.7 10^3/ul (1.6-7.5); NEUTROPHILS % 77.1 % (39.0-77.0); PLATELET COUNT 218 10^3/UL (140-415); RED BLOOD COUNT 3.11 10^6/ul (4.20-5.40); RED CELL DISTRIBUTION WIDTH 13.5 % (11.5-14.5); WHITE BLOOD COUNT 8.7 10^3/ul (4.8-10.8)
[2016-11-24 06:11] LABS: MAGNESIUM 2.1 mg/dl (1.7-2.5); PHOSPHORUS 3.1 mg/dl (2.5-4.9)
[2016-11-24 06:15] LABS: ALBUMIN 3.3 g/dl (3.3-4.9); ALBUMIN/GLOBULIN RATIO 0.86; BILIRUBIN,INDIRECT 0.5 mg/dl (0-1.1); BILIRUBIN,TOTAL 0.5 mg/dl (0.2-1.3); CREATININE 0.89 mg/dl (0.44-1.00); TOTAL PROTEIN 7.1 g/dl (6.1-8.1)
[2016-11-24 07:58] VITALS: BP 131/67; RESP 18
[2016-11-24] MEDS: SALMETEROL/FLUTICASONE 250/50 INHA INH SCH ×2 (08:21→20:04)
[2016-11-24] MEDS: FAMOTIDINE 20 MG INJ IV SCH ×2 (08:21→20:04)
--- NOTE | 2016-11-24 10:54 | PN ---
Date/Time of Note Date/Time of Note DATE: 11/24/16 TIME: 10:47 Assessment/Plan VTE Prophylaxis VTE Prophylaxis Intervention: SCD's Lines/Catheters IV Catheter Type (from Nrs): Peripheral IV Urinary Cath still in place: No Assessment/Plan Assessment/Plan 66-year-old female with: 1. Acute appendicitis: Per clinical and radiographic findings, patient still wants to pursue medical rx, hesitant to undergo surgery yesterday, she is on IV antibiotics and WBC trending down but still with lower abdominal pain, right > left, From the medical standpoint, I have advocated for laparoscopic appendectomy but the patient again still hesitant and wants to pursue medical rx. Continue Zosyn, continue IV fluids, keep patient n.p.o. until cleared to eat from surgical standpoint. Chest x-ray, EKG within normal limits, no previous history of cardiac disease. Patient is considered a low risk for complication based on her current clinical status and history. No additional studies needed. General Surgery, Dr. Barnard, following. Of note she has voiced that she seems to have a hard time with anesthesia, after her last surgery she was having nausea vomiting for approximately 3 days secondary to anesthesia. 2. Right breast cancer, status post mastectomy and reconstructive surgery. Stable 3. Hypertension: Resume home medication once able to take p.o. 4. Hyperlipidemia: Resume gemfibrozil once able to take p.o., Prophylaxis: Pepcid for GI prophylaxis, SCDs for DVT prophylaxis Disposition: Keep n.p.o., IV fluids, IV antibiotics, for now medical management only since patient keeps refusing surgery. Subjective 24 Hr Interval Summary Free Text/Dictation Patient still with lower abdo pain, WBC down and patient still wants medical rx with abx, will keep reevaluating NPO so far and will start diet when OK with Gen Surg Exam/Review of Systems Vital Signs Vitals Vital Signs Date Time Temp Pulse Resp B/P Pulse Ox O2 Delivery O2 Flow Rate FiO2 11/24/16 07:58 98.6 64 18 131/67 97 11/23/16 02:00 Room Air Intake and Output 11/23/16 11/23/16 11/24/16 15:00 23:00 07:00 Intake Total 100 ml 1220 ml 1000 ml Balance 100 ml 1220 ml 1000 ml Exam Constitutional: alert, oriented, well developed Respiratory: clear to auscultation, normal air movement Cardiovascular: nl pulses, regular rate and rhythm Gastrointestinal: soft, tender (Lower abdo ) Musculoskeletal: nl extremities to inspection, nl gait and stance Extremities: normal pulses, other (no edema, clubbing or cyanosis ) Neurological: FIRE BEHAVIOR ANALYST II-XII intact, nl mental status, nl speech, nl strength Results Result Diagram: 11/24/1644611/24/16446 Results 24 hrs Laboratory Tests Test 11/24/16 04:47 White Blood Count 8.7 # Red Blood Count 3.11 L Hemoglobin 9.5 L Hematocrit 29.4 L Mean Corpuscular Volume 94.5 Mean Corpuscular Hemoglobin 30.5 Mean Corpuscular Hemoglobin Concent 32.3 Red Cell Distribution Width 13.5 Platelet Count 218 Mean Platelet Volume 10.3 Neutrophils % 77.1 H Lymphocytes % 12.3 L Monocytes % 7.3 Eosinophils % 2.5 Basophils % 0.3 Nucleated Red Blood Cells % 0.0 Neutrophils # 6.7 Lymphocytes # 1.1 Monocytes # 0.6 Eosinophils # 0.2 Basophils # 0.0 Nucleated Red Blood Cells # 0.0 Sodium Level 143 Potassium Level 4.0 Chloride Level 109 Carbon Dioxide Level 26 Anion Gap 12 Blood Urea Nitrogen 5 L Creatinine 0.89 Glucose Level 117 Calcium Level 9.0 Phosphorus Level 3.1 Magnesium Level 2.1 Total Bilirubin 0.5 Direct Bilirubin 0.00 Indirect Bilirubin 0.5 Aspartate Amino Transf (AST/SGOT) 26 Alanine Aminotransferase (ALT/SGPT) 34 Alkaline Phosphatase 79 Total Protein 7.1 Albumin 3.3 Globulin 3.80 H Albumin/Globulin Ratio 0.86 Medications Medications Current Medications Salmeterol Xinafoate/ Fluticasone (Advair 250/50 Diskus) 1 inh BID INH Last administered on 11/23/16 04:19; Admin Dose 1 INH; Start 11/22/16 at 21:00 Ondansetron HCl (Zofran Inj) 4 mg Q6H PRN IV NAUSEA AND/OR VOMITING; Start at 17:30 Acetaminophen (Tylenol Tab) 650 mg Q6H PRN PO PAIN LEVEL 1-3 OR FEVER Last administered on 11/22/16 20:12; Admin Dose 650 MG; Start 11/22/16 at 17:30 Acetaminophen (Tylenol Supp) 650 mg Q6H PRN [place] PAIN LEVEL 1-3 OR FEVER; Start 11/22/16 at 17:30 Morphine Sulfate (morphine) 2 mg Q4H PRN IV SEVERE PAIN LEVEL 7-10 Last administered on 11/23/16 12:44; Admin Dose 2 MG; Start 11/22/16 at 17:30 Famotidine 20 mg 20 mg Q12 IV Last administered on 11/24/16 08:21; Admin Dose 20 MG; Start 11/22/16 at 21:00 Potassium Chloride/Dextrose/ Sod Cl 1,000 ml @ 100 mls/hr Q10H IV Last administered on 11/24/16 03:54; Admin Dose 100 MLS/HR; Start 11/22/16 at 17: 30 Piperacillin Sod/ Tazobactam Sod (Zosyn 3.375gm/ 100 ml (Pmx)) 100 ml @ 200 mls /hr Q8 IVPB Last administered on 11/24/16 05:33; Admin Dose 200 MLS/HR; Start 11/22/16 at 22:00 Hydralazine HCl (Apresoline) 10 mg Q8H PRN IV SBP GREATER THAN 160; Start at 17:30 CRISTINA ESQUIVEL Nov 24, 2016 10:54
[2016-11-24 14:00] VITALS: BP 148/69; RESP 19
--- NOTE | 2016-11-24 16:35 | PN ---
Date/Time of Note Date/Time of Note DATE: 11/24/16 TIME: 16:18 Assessment/Plan Lines/Catheters IV Catheter Type (from [facility]): Peripheral IV [facility] in Place (from [facility]): No Assessment/Plan Assessment/Plan 1. Abdominal pain with leukocytosis and CT diagnosis of acute appendicitis. Patient was offered operative versus medical treatment. At this time she continues to desire medical management and avoid operative treatment.; abdominal pain; leukocytosis improving -IV antibiotics -IV fluids -Out of bed ambulate 2. Hypertension -Diet and medication optimization 3. Hyperlipidemia -Diet and medication optimization 4. History of breast cancer with mastectomy and reconstruction -Routine follow-ups with oncology and her primary surgeon Subjective 24 Hr Interval Summary Abdominal pain improving. Leukocytosis normalized. C/o hunger. No fevers, chills , sob, congested cough, n/v/d/dysuria, albright, dizziness, cp, palpitations. Exam/Review of Systems Vital Signs Vitals Vital Signs Date Time Temp Pulse Resp B/P Pulse Ox O2 Delivery O2 Flow Rate FiO2 11/24/16 14:00 98.0 60 19 148/69 99 11/23/16 02:00 Room Air Intake and Output 11/23/16 11/23/16 11/24/16 15:00 23:00 07:00 Intake Total 100 ml 1220 ml 1000 ml Balance 100 ml 1220 ml 1000 ml Exam Free Text/Dictation Constitutional: alert, oriented, No distress Psych: no nl mood/affect, anxiety, No confusion Head: atraumatic, normocephalic Eyes: EOMI, PERRL, nl conjunctiva, No icteric ENMT: mucosa pink and moist, nl external ears & nose, nl lips & teeth Neck: non-tender, supple, No jvd Respiratory: normal air movement, No congested cough, No labored breathing Cardiovascular: regular rate and rhythm, No edema Gastrointestinal: soft, min tender, No firm, No rebound or guarding Musculoskeletal: nl extremities to inspection, nl gait and stance, No joint tenderness Extremities: normal pulses, No calf tenderness, No cyanosis Neurological: nl mental status, nl speech, nl strength Skin: nl turgor, No diaphoresis, No ecchymosis, No rash or lesions Lymph: nl lymph nodes, nontender Results Result Diagram: 11/24/16 0447 11/24/16446 LIV WADSWORTH NP Nov 24, 2016 16:28
[2016-11-24 20:02] VITALS: BP 147/68; RESP 20
[2016-11-25 02:20] VITALS: BP 133/67; RESP 18
[2016-11-25] MEDS: D5W-0.45 NACL + KCL 20 MEQ 1,000 ML IV SCH ×2 (03:30→14:05)
[2016-11-25] MEDS: PIPER-TAZO 3.375 GM IV (PMX) 100 ML IVPB SCH ×3 (05:25→21:29)
[2016-11-25 08:07] VITALS: BP 137/62; RESP 20
[2016-11-25] MEDS: FAMOTIDINE 20 MG INJ IV SCH ×2 (08:45→21:29)
[2016-11-25] MEDS: SALMETEROL/FLUTICASONE 250/50 INHA INH SCH ×2 (08:45→21:00)
[2016-11-25 10:48] VITALS: PULSE 58
[2016-11-25 12:49] LABS: BASOPHILS % 0.5 % (0.0-2.0); EOSINOPHILS # 0.2 10^3/ul (0.0-0.5); EOSINOPHILS % 3.5 % (0.0-7.0); HEMATOCRIT 30.1 % (37.0-47.0); HEMOGLOBIN 9.7 g/dl (12.0-16.0); LYMPHOCYTES # 1.2 10^3/ul (0.8-2.9); LYMPHOCYTES % 20.5 % (15.0-51.0); MEAN CORPUSCULAR HEMOGLOBIN 30.1 pg (29.0-33.0); MEAN CORPUSCULAR HGB CONC 32.2 g/dl (32.0-37.0); MEAN CORPUSCULAR VOLUME 93.5 fl (82.0-101.0); MEAN PLATELET VOLUME 9.9 fl (7.4-10.4); MONOCYTE # 0.5 10^3/ul (0.3-0.9); MONOCYTES % 8.6 % (0.0-11.0); NEUTROPHIL # 3.8 10^3/ul (1.6-7.5); NEUTROPHILS % 66.5 % (39.0-77.0); PLATELET COUNT 242 10^3/UL (140-415); RED BLOOD COUNT 3.22 10^6/ul (4.20-5.40); RED CELL DISTRIBUTION WIDTH 13.4 % (11.5-14.5); WHITE BLOOD COUNT 5.7 10^3/ul (4.8-10.8)
[2016-11-25 13:21] LABS: ALBUMIN 3.5 g/dl (3.3-4.9); ALBUMIN/GLOBULIN RATIO 0.89; BILIRUBIN,INDIRECT 0.4 mg/dl (0-1.1); BILIRUBIN,TOTAL 0.4 mg/dl (0.2-1.3); CALCIUM 9.4 mg/dl (8.4-10.2); CREATININE 0.94 mg/dl (0.44-1.00); POTASSIUM 3.9 mmol/L (3.5-5.1); TOTAL PROTEIN 7.4 g/dl (6.1-8.1)
--- NOTE | 2016-11-25 13:42 | PN ---
Date/Time of Note Date/Time of Note DATE: 11/25/16 TIME: 13:42 Assessment/Plan VTE Prophylaxis VTE Prophylaxis Intervention: SCD's Lines/Catheters IV Catheter Type (from Nrs): Peripheral IV Urinary Cath still in place: No Assessment/Plan Assessment/Plan 66-year-old female with: 1. Acute appendicitis: Per clinical and radiographic findings, patient still wants to pursue medical rx, hesitant to undergo surgery yesterday, she is on IV antibiotics and WBC still trending down but with ongoing lower abdominal pain , right> left, last night she was started on clears but per general surgery, from what she is reporting she did not tolerate well as she is planing of nausea and increase no abdominal pain after getting clear liquids. He also complains having abnormal stools, loose stools. Will check C. difficile. From the medical standpoint, I have advocated for laparoscopic appendectomy but the patient again still hesitant and wants to pursue medical rx. Continue Zosyn, continue IV fluids, clears per general surgery. Chest x-ray, EKG within normal limits, no previous history of cardiac disease. Patient is considered a low risk for complication based on her current clinical status and history. No additional studies needed. General Surgery, Dr. Barnard, following. Of note she has voiced that she seems to have a hard time with anesthesia, after her last surgery she was having nausea vomiting for approximately 3 days secondary to anesthesia. 2. Right breast cancer, status post mastectomy and reconstructive surgery. Stable 3. Hypertension: Resume home medication once able to take p.o. 4. Hyperlipidemia: Resume gemfibrozil once able to take p.o., Prophylaxis: Pepcid for GI prophylaxis, SCDs for DVT prophylaxis Disposition: Clears per general surgery, as tolerated,IV fluids, IV antibiotics , for now medical management only since patient keeps still refusing surgery. Subjective 24 Hr Interval Summary Free Text/Dictation Patient was started on clear liquid last night by general surgery, she reports that when she had dinner, she had lower abdominal pain, right lower abdominal pain, was having nausea after her p.o. intake. This morning she complains of lower abdominal pain again, she is complaining of loose stools or difficulty having bowel movement it is unclear. She is worried about infection of the stool and I again emphasized that she does have an infection, it is called acute appendicitis. She is currently on Zosyn. Will check C. difficile if she has diarrhea. Exam/Review of Systems Vital Signs Vitals Vital Signs Date Time Temp Pulse Resp B/P Pulse Ox O2 Delivery O2 Flow Rate FiO2 11/25/16 10:48 58 11/25/16 08:07 97.6 20 137/62 98 11/23/16 02:00 Room Air Intake and Output 11/24/16 11/24/16 11/25/16 15:00 23:00 07:00 Intake Total 900 ml 200 ml 1290 ml Balance 900 ml 200 ml 1290 ml Exam Constitutional: alert, oriented, well developed Respiratory: clear to auscultation, normal air movement Cardiovascular: nl pulses, regular rate and rhythm Gastrointestinal: soft, tender (Right lower quadrant, along her lower abdomen) Musculoskeletal: nl extremities to inspection, nl gait and stance Extremities: normal pulses, other (No edema, clubbing or cyanosis) 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, nl mental status, nl speech, nl strength Results Result Diagram: 11/25/16 1204 11/25/16 1204 Results 24 hrs Laboratory Tests Test 11/25/16 12:04 White Blood Count 5.7 # Red Blood Count 3.22 L Hemoglobin 9.7 L Hematocrit 30.1 L Mean Corpuscular Volume 93.5 Mean Corpuscular Hemoglobin 30.1 Mean Corpuscular Hemoglobin Concent 32.2 Red Cell Distribution Width 13.4 Platelet Count 242 Mean Platelet Volume 9.9 Neutrophils % 66.5 Lymphocytes % 20.5 Monocytes % 8.6 Eosinophils % 3.5 Basophils % 0.5 Nucleated Red Blood Cells % 0.0 Neutrophils # 3.8 Lymphocytes # 1.2 Monocytes # 0.5 Eosinophils # 0.2 Basophils # 0.0 Nucleated Red Blood Cells # 0.0 Sodium Level 145 H Potassium Level 3.9 Chloride Level 109 Carbon Dioxide Level 26 Anion Gap 14 Blood Urea Nitrogen 5 L Creatinine 0.94 Glucose Level 105 Calcium Level 9.4 Total Bilirubin 0.4 Direct Bilirubin 0.00 Indirect Bilirubin 0.4 Aspartate Amino Transf (AST/SGOT) 30 Alanine Aminotransferase (ALT/SGPT) 42 Alkaline Phosphatase 77 Total Protein 7.4 Albumin 3.5 Globulin 3.90 H Albumin/Globulin Ratio 0.89 Medications Medications Current Medications Salmeterol Xinafoate/ Fluticasone (Advair 250/50 Diskus) 1 inh BID INH Last administered on 11/23/16 04:19; Admin Dose 1 INH; Start 11/22/16 at 21:00 Ondansetron HCl (Zofran Inj) 4 mg Q6H PRN IV NAUSEA AND/OR VOMITING Last administered on 11/24/16 18:54; Admin Dose 4 MG; Start 11/22/16 at 17:30 Acetaminophen (Tylenol Tab) 650 mg Q6H PRN PO PAIN LEVEL 1-3 OR FEVER Last administered on 11/22/16 20:12; Admin Dose 650 MG; Start 11/22/16 at 17:30 Acetaminophen (Tylenol Supp) 650 mg Q6H PRN [place] PAIN LEVEL 1-3 OR FEVER; Start 11/22/16 at 17:30 Morphine Sulfate (morphine) 2 mg Q4H PRN IV SEVERE PAIN LEVEL 7-10 Last administered on 11/23/16 12:44; Admin Dose 2 MG; Start 11/22/16 at 17:30 Famotidine 20 mg 20 mg Q12 IV Last administered on 11/25/16 08:45; Admin Dose 20 MG; Start 11/22/16 at 21:00 Potassium Chloride/Dextrose/ Sod Cl 1,000 ml @ 100 mls/hr Q10H IV Last administered on 11/25/16 03:30; Admin Dose 100 MLS/HR; Start 11/22/16 at 17: 30 Piperacillin Sod/ Tazobactam Sod (Zosyn 3.375gm/ 100 ml (Pmx)) 100 ml @ 200 mls /hr Q8 IVPB Last administered on 11/25/16 05:25; Admin Dose 200 MLS/HR; Start 11/22/16 at 22:00 Hydralazine HCl (Apresoline) 10 mg Q8H PRN IV SBP GREATER THAN 160; Start at 17:30 CRISTINA ESQUIVEL Nov 25, 2016 13:42
[2016-11-25 13:53] VITALS: BP 165/74; RESP 18
[2016-11-25 15:28] VITALS: BP 155/60; PULSE 60
[2016-11-25] MEDS ORDERED: LISINOPRIL 10 MG TAB PO SCH (16:00)
[2016-11-25] MEDS: LISINOPRIL 10 MG TAB PO SCH (16:09)
[2016-11-25] MEDS: HYDROCHLOROTHIAZIDE 12.5 MG CAP PO SCH (16:09)
[2016-11-25] MEDS: GEMFIBROZIL 600 MG TAB PO SCH (16:09)
[2016-11-25] MEDS: ACETAMINOPHEN 325 MG TAB PO PRN (16:13)
[2016-11-25 20:28] VITALS: BP 150/69; RESP 18
--- NOTE | 2016-11-25 22:40 | PN ---
Date/Time of Note Date/Time of Note DATE: 11/25/16 TIME: 22:40 Assessment/Plan Lines/Catheters IV Catheter Type (from [facility]): Peripheral IV Churchill in Place (from [facility]): No Assessment/Plan Chief Complaint/Hosp Course 1. Abdominal pain with leukocytosis and CT diagnosis of acute appendicitis. Patient was offered operative versus medical treatment. At this time she continues to desire medical management and avoid operative treatment.; abdominal pain-resolved; leukocytosis normalized -IV antibiotics -IV fluids -diet advance: if tolerating diet and no acute change patient may be discharged per medical team 2. Hypertension -Diet and medication optimization 3. Hyperlipidemia -Diet and medication optimization 4. History of breast cancer with mastectomy and reconstruction -Routine follow-ups with oncology and her primary surgeon Problems: Subjective 24 Hr Interval Summary Abdominal pain much improved. Tolerating diet. Anxious. Reports diarrhea- was sent for cdif. No fevers, chills, sob, congested cough, albright, dizziness, cp, palpitations, n/v/dysuria. Exam/Review of Systems Vital Signs Vitals Vital Signs Date Time Temp Pulse Resp B/P Pulse Ox O2 Delivery O2 Flow Rate FiO2 11/26/16 02:20 98.2 52 18 155/74 96 11/23/16 02:00 Room Air Intake and Output 11/25/16 11/25/16 11/26/16 15:00 23:00 07:00 Intake Total 850 ml 900 ml Balance 850 ml 900 ml Exam Free Text/Dictation Constitutional: alert, oriented, No distress Psych: no nl mood/affect, anxiety, No confusion Head: atraumatic, normocephalic Eyes: EOMI, PERRL, nl conjunctiva, No icteric ENMT: mucosa pink and moist, nl external ears & nose, nl lips & teeth Neck: non-tender, supple, No jvd Respiratory: normal air movement, No congested cough, No labored breathing Cardiovascular: regular rate and rhythm, No edema Gastrointestinal: soft, non tender, No firm, No rebound or guarding Musculoskeletal: nl extremities to inspection, nl gait and stance, No joint tenderness Extremities: normal pulses, No calf tenderness, No cyanosis Neurological: nl mental status, nl speech, nl strength Skin: nl turgor, No diaphoresis, No ecchymosis, No rash or lesions Lymph: nl lymph nodes, nontender Results Result Diagram: 11/26/16 0518 11/25/16 1204 LIV WADSWORTH NP Nov 25, 2016 22:40
[2016-11-26] VITALS (7 sets, daily range): BP systolic 141–182; BP diastolic 65–87; PULSE 59; RESP 16–18
[2016-11-26] MEDS: D5W-0.45 NACL + KCL 20 MEQ 1,000 ML IV SCH ×2 (01:22→10:27)
[2016-11-26] MEDS: PIPER-TAZO 3.375 GM IV (PMX) 100 ML IVPB SCH (05:54)
[2016-11-26 06:00] LABS: BASOPHILS % 0.7 % (0.0-2.0); EOSINOPHILS # 0.2 10^3/ul (0.0-0.5); EOSINOPHILS % 3.8 % (0.0-7.0); HEMOGLOBIN 9.6 g/dl (12.0-16.0); LYMPHOCYTES # 1.3 10^3/ul (0.8-2.9); LYMPHOCYTES % 22.1 % (15.0-51.0); MEAN CORPUSCULAR HGB CONC 33.1 g/dl (32.0-37.0); MEAN CORPUSCULAR VOLUME 93.5 fl (82.0-101.0); MEAN PLATELET VOLUME 9.9 fl (7.4-10.4); MONOCYTE # 0.5 10^3/ul (0.3-0.9); MONOCYTES % 8.5 % (0.0-11.0); NEUTROPHIL # 3.7 10^3/ul (1.6-7.5); NEUTROPHILS % 64.6 % (39.0-77.0); PLATELET COUNT 251 10^3/UL (140-415); RED CELL DISTRIBUTION WIDTH 13.3 % (11.5-14.5); WHITE BLOOD COUNT 5.7 10^3/ul (4.8-10.8)
[2016-11-26 06:25] LABS: CALCIUM 9.3 mg/dl (8.4-10.2); CREATININE 0.94 mg/dl (0.44-1.00); POTASSIUM 4.3 mmol/L (3.5-5.1)
[2016-11-26 06:27] LABS: PHOSPHORUS 4.7 mg/dl (2.5-4.9)
[2016-11-26] MEDS: GEMFIBROZIL 600 MG TAB PO SCH (08:11)
[2016-11-26] MEDS: SALMETEROL/FLUTICASONE 250/50 INHA INH SCH ×2 (08:11→20:32)
[2016-11-26] MEDS: LISINOPRIL 10 MG TAB PO SCH (08:11)
[2016-11-26] MEDS: HYDROCHLOROTHIAZIDE 12.5 MG CAP PO SCH (08:11)
[2016-11-26] MEDS: FAMOTIDINE 20 MG TAB PO SCH ×2 (09:21→20:30)
[2016-11-26] MEDS ORDERED: HYDROCODONE/APAP (5/325) TAB PO PRN ×2 (12:30)
[2016-11-26] MEDS: metroNIDAZOLE 500 MG TAB PO SCH ×2 (13:26→23:31)
[2016-11-26] MEDS: LEVOFLOXACIN 500 MG TAB PO SCH (13:26)
--- NOTE | 2016-11-26 16:12 | PDOCDIS ---
Discharge Instructions CONDITION Patient Condition: Stable HOME CARE INSTRUCTIONS: Special Diet: low fat, low cholesterol diet ACTIVITY: Activity Restrictions: Slowly Increase Activity FOLLOW UP/APPOINTMENTS Follow-up Plan Follow-up with primary care physician within 1 week Referral to surgery with outpatient follow if patient does not go through surgery, for her acute appendicitis treated medically. CRISTINA ESQUIVEL Nov 26, 2016 16:12
[2016-11-26] MEDS ORDERED: HYDR-3498 PO (16:14)
[2016-11-26] MEDS ORDERED: METR500T PO (16:14)
[2016-11-26] MEDS ORDERED: LEVO500T72 PO (16:14)
--- NOTE | 2016-11-26 16:32 | PN ---
Date/Time of Note Date/Time of Note DATE: 11/26/16 TIME: 16:20 Assessment/Plan VTE Prophylaxis VTE Prophylaxis Intervention: SCD's Lines/Catheters IV C[facility]ter Type (from [facility]): Peripheral IV Urinary Cath still in place: No Assessment/Plan Assessment/Plan 66-year-old female with: 1. Acute appendicitis: Per clinical and radiographic findings, patient still wants to pursue medical rx, hesitant to undergo surgery yesterday, she is on IV antibiotics and WBC still trending down and currently normal over the past 3 days. Lower abdomen discomfort right> left, no pain per se according to patient, she is tolerating regular diet. Loose stools, C. difficile negative. If patient does not have any further surgical intervention planned, she will be discharged home today on Levaquin and Flagyl for 10 more days with outpatient follow-up with primary care physician and general surgery. Again from the medical standpoint, I have advocated for laparoscopic appendectomy multiple times to the patient as a treatment of her acute appendicitis, she keeps declining surgery wants to pursue antibiotic treatment however today she seems to be a little more hesitant and is talking about "getting the surgery". She will discuss with general surgery. General Surgery, Dr. Barnard, following. Chest x-ray, EKG within normal limits, no previous history of cardiac disease. Patient is considered a low risk for complication based on her current clinical status and history. No additional studies needed. Of note she has voiced that she seems to have a hard time with anesthesia, after her last surgery she was having nausea vomiting for approximately 3 days secondary to anesthesia. 2. Right breast cancer, status post mastectomy and reconstructive surgery. Stable 3. Hypertension: Resume home medication once able to take p.o. 4. Hyperlipidemia: Resume gemfibrozil once able to take p.o., Prophylaxis: Pepcid for GI prophylaxis, SCDs for DVT prophylaxis Disposition: Possible discharge home today if no surgical intervention planned. Subjective 24 Hr Interval Summary Free Text/Dictation Patient denies abdominal pain per se but reports some discomfort on her lower abdomen less so on the right lower quadrant a little more towards the left lower quadrant. She is tolerating p.o. She is afebrile. White blood cell count is within normal. She is having second thoughts right now she is saying that she may want to do the surgery. Discussed with general surgery tonight. If she is willing to proceed with appendectomy and a general surgery still recommends that the patient will be kept inpatient otherwise plan to discharge today. All prescriptions have been left in the chart. Exam/Review of Systems Vital Signs Vitals Vital Signs Date Time Temp Pulse Resp B/P Pulse Ox O2 Delivery O2 Flow Rate FiO2 11/26/16 14:00 98.1 58 18 160/70 98 11/23/16 02:00 Room Air Intake and Output 11/25/16 11/25/16 11/26/16 15:00 23:00 07:00 Intake Total 850 ml 1100 ml 480 ml Balance 850 ml 1100 ml 480 ml Exam Constitutional: alert, oriented, well developed Respiratory: clear to auscultation, normal air movement Cardiovascular: nl pulses, regular rate and rhythm Gastrointestinal: bowel sounds (Present), distended (Slightly distended abdomen.), soft, tender Musculoskeletal: nl extremities to inspection, nl gait and stance Extremities: normal pulses 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, nl mental status, nl speech, nl strength Results Result Diagram: 11/26/1618 11/26/1618 Results 24 hrs Laboratory Tests Test 11/26/16 05:18 White Blood Count 5.7 Red Blood Count 3.10 L Hemoglobin 9.6 L Hematocrit 29.0 L Mean Corpuscular Volume 93.5 Mean Corpuscular Hemoglobin 31.0 Mean Corpuscular Hemoglobin Concent 33.1 Red Cell Distribution Width 13.3 Platelet Count 251 Mean Platelet Volume 9.9 Neutrophils % 64.6 Lymphocytes % 22.1 Monocytes % 8.5 Eosinophils % 3.8 Basophils % 0.7 Nucleated Red Blood Cells % 0.0 Neutrophils # 3.7 Lymphocytes # 1.3 Monocytes # 0.5 Eosinophils # 0.2 Basophils # 0.0 Nucleated Red Blood Cells # 0.0 Sodium Level 146 H Potassium Level 4.3 Chloride Level 110 Carbon Dioxide Level 25 Anion Gap 15 Blood Urea Nitrogen 4 L Creatinine 0.94 Glucose Level 110 Calcium Level 9.3 Phosphorus Level 4.7 Magnesium Level 2.0 Medications Medications Current Medications Salmeterol Xinafoate/ Fluticasone (Advair 250/50 Diskus) 1 inh BID INH Last administered on 11/26/16t 08:11; Admin Dose 1 INH; Start 11/22/16 at 21:00 Ondansetron HCl (Zofran Inj) 4 mg Q6H PRN IV NAUSEA AND/OR VOMITING Last administered on 11/24/16 18:54; Admin Dose 4 MG; Start 11/22/16 at 17:30 Acetaminophen (Tylenol Tab) 650 mg Q6H PRN PO PAIN LEVEL 1-3 OR FEVER Last administered on 11/25/16 16:13; Admin Dose 650 MG; Start 11/22/16 at 17:30 Acetaminophen (Tylenol Supp) 650 mg Q6H PRN [place] PAIN LEVEL 1-3 OR FEVER; Start 11/22/16 at 17:30 Hydralazine HCl (Apresoline) 10 mg Q8H PRN IV SBP GREATER THAN 160; Start at 17:30 Gemfibrozil (Lopid) 600 mg DAILY PO Last administered on 11/26/16 08:11; Admin Dose 600 MG; Start 11/25/16 at 16:00 Lisinopril (Zestril) 10 mg DAILY PO Last administered on 11/26/16 08:11; Admin Dose 10 MG; Start 11/25/16 at 17:00 Hydrochlorothiazide (Hydrochlorothiazide) 12.5 mg DAILY PO Last administered on 11/26/16 08:11; Admin Dose 12.5 MG; Start 11/25/16 at 17:00 Famotidine (Pepcid) 20 mg Q12 PO Last administered on 11/26/16 09:21; Admin Dose 20 MG; Start 11/26/16 at 09:00 Levofloxacin (Levaquin) 500 mg DAILY PO Last administered on 11/26/16 13:26; Admin Dose 500 MG; Start 11/26/16 at 13:00 Metronidazole (Flagyl) 500 mg Q8 PO Last administered on 11/26/16 13:26; Admin Dose 500 MG; Start 11/26/16 at 14:00 Acetaminophen/ Hydrocodone Bitart ([place] (5/325)) 1 tab Q6H PRN PO PAIN LEVEL 1 -5; Start 11/26/16 at 12:30 Acetaminophen/ Hydrocodone Bitart ([place] (5/325)) 2 tab Q6H PRN PO PAIN LEVEL 6 -10; Start 11/26/16 at 12:30 CRISTINA ESQUIVEL Nov 26, 2016 16:32
--- NOTE | 2016-11-26 21:02 | PN ---
Date/Time of Note Date/Time of Note DATE: 11/26/16 TIME: 21:02 Assessment/Plan Lines/Catheters IV Catheter Type (from [facility]): Peripheral IV Churchill in Place (from [facility]): No Assessment/Plan Chief Complaint/Hosp Course 1. Abdominal pain with leukocytosis and CT diagnosis of acute appendicitis. Patient was offered operative versus medical treatment. At this time she continues to desire medical management and avoid operative treatment. -IV antibiotics -IV fluids -Out of bed ambulate 2. Hypertension -Diet and medication optimization 3. Hyperlipidemia -Diet and medication optimization 4. History of breast cancer with mastectomy and reconstruction -Routine follow-ups with oncology and her primary surgeon Thank you, Problems: Exam/Review of Systems Vital Signs Vitals Vital Signs Date Time Temp Pulse Resp B/P Pulse Ox O2 Delivery O2 Flow Rate FiO2 11/26/16 20:06 98.2 70 16 182/87 96 11/23/16 02:00 Room Air Intake and Output 11/25/16 11/25/16 11/26/16 15:00 23:00 07:00 Intake Total 850 ml 1100 ml 480 ml Balance 850 ml 1100 ml 480 ml Results Result Diagram: 11/26/16 0518 11/26/16 0518 RONY PERRY MD Nov 26, 2016 21:02
[2016-11-27 01:06] VITALS: BP 180/81
[2016-11-27 02:55] VITALS: BP 117/61; RESP 16
[2016-11-27 08:08] VITALS: BP 146/76; RESP 16
[2016-11-27] MEDS: SALMETEROL/FLUTICASONE 250/50 INHA INH SCH (09:00)
[2016-11-27] MEDS: GEMFIBROZIL 600 MG TAB PO SCH (09:01)
[2016-11-27] MEDS: LISINOPRIL 10 MG TAB PO SCH (09:01)
[2016-11-27] MEDS: metroNIDAZOLE 500 MG TAB PO SCH ×2 (09:01→15:24)
[2016-11-27] MEDS: LEVOFLOXACIN 500 MG TAB PO SCH (09:01)
[2016-11-27] MEDS: HYDROCHLOROTHIAZIDE 12.5 MG CAP PO SCH (09:02)
[2016-11-27] MEDS: FAMOTIDINE 20 MG TAB PO SCH (09:02)
[2016-11-27] MEDS: ACETAMINOPHEN 325 MG TAB PO PRN (09:07)
--- NOTE | 2016-11-27 10:26 | DS ---
Date/Time of Note Date/Time of Note DATE: 11/27/16 TIME: 10:25 Discharge Summary Admission/Discharge Info Admit Date/Time Nov 22, 2016 at 15:15 Discharge Date/Time 11/27/16 at 11 Am Patient Condition: Good Consults Dr. Chester Barnard from general surgery Procedures None Hx of Present Illness Chief complaint: Abdominal pain History of presenting illness: This is a 66-year-old female with history of right breast cancer status post mastectomy in 2014 followed by reconstructive surgery by 2016, no previous chemotherapy needed, has been in her usual state of health until approximately 2 days ago when she started having abdominal pain. Patient reports that she had periumbilical pain at first 48 hours ago progressed to be mostly on her lower abdomen and by today he was more on the right lower quadrant area. She has been having nausea and vomiting at onset of the pain, since then she has had nausea, decreased p.o. intake, anorexia, fevers up to 101.6 over the past 48 hours. In the emergency department she had a CAT scan of the abdomen and pelvis and was diagnosed with acute appendicitis with no perforation. Patient is started on Zosyn along with IV fluids, she will be kept n.p.o. General surgery consult pending. Dr. Barnard was contacted in the emergency department by the ER physician Dr. Peterson Hospital Course Patient since admission has been consistently refusing surgical treatment for her acute appendicitis, she has been maintained on IV antibiotics for 3 days, started on a diet by hospital day #3 by general surgery and subsequently advanced. She is tolerating p.o. She has very minimal abdominal discomfort at this point. Dr. Barnard from [facility] general surgery and myself have talked to the patient on a daily basis trying to convince her to proceed with surgical treatment. She has consistently refused so far, she wants to try the antibiotics. She will be discharged home today with outpatient follow-up with Dr. Barnard within 1 week. Her white blood cell count has normalized, she is afebrile, no signs of acute peritonitis. She had episodes of diarrhea, C. difficile is negative, she will be discharged on Levaquin and Flagyl for 10 more days. She is instructed to follow-up with surgery within 1-2 weeks by myself and also by Dr. Barnard. Home Meds Active Scripts Hydrocodone Bit-Acetaminophen (Hydrocodone Bit-APAP) 5-325MG Tablet, 2 TAB PO Q6H Y for PAIN LEVEL 6-10, #30 TAB Prov:Сергей ESQUIVELKRYSTENSTEPHY Ryan 11/26/16 Metronidazole* (Flagyl*) 500 Mg Tablet, 500 MG PO Q8 for 10 Days, TAB Prov:SIERRALaurenDayneKRYSTENSTEPHY Ryan 11/26/16 Levofloxacin* (Levaquin*) 500 Mg Tablet, 500 MG PO DAILY for 10 Days, TAB Prov:SIERRALaurenDayneKRYSTENSTEPHY Ryan 11/26/16 Reported Medications Vitamin B Complex & Vit C No.4 (Super B Complex) Unknown Strength Tablet, 1 TAB PO DAILY, TAB 11/22/16 Calcium Carbonate* (Calcium Carbonate*) 600 MG Ca Tab, 1200 MG PO, TAB 11/22/16 Ascorbic Acid (Vitamin C) 500 Mg Tab, 500 MG PO DAILY, TAB 11/22/16 Lisinopril/Hydrochlorothiazide (Lisinopril-Hctz 10-12.5 mg Tab) 1 Each Tablet, 1 EACH PO DAILY, TAB 11/22/16 Albuterol Sulfate* (Albuterol Sulfate* HFA) 8.5 Gm Hfa.aer.ad, 2 PUFF IH Q4H Y for WHEEZING AND SOB, EA 06/05/14 Gemfibrozil* (Gemfibrozil*) 600 Mg Tablet, 600 MG PO DAILY, TAB 05/19/14 Salmeterol Xinaf/Fluticasone* (Advair*) 250-50 Diskus Inhaler, 1 INH INH DAILY Y for SHORTNESS OF BREATH, INH 05/19/14 Discontinued Reported Medications Hydrochlorothiazide* (Hydrochlorothiazide*) 12.5 Mg Tablet, 12.5 MG PO DAILY, TAB 05/19/14 Follow-up Plan Follow-up with primary care physician within 1 week Referral to surgery with outpatient follow if patient does not go through surgery, for her acute appendicitis treated medically. Primary Care Provider Heaven Bolanos Time spent on discharge: > 30 minutes CRISTINA ESQUIVEL Nov 27, 2016 10:26 CRISTINA ESQUIVEL Nov 27, 2016 10:26
[2016-11-27 14:15] VITALS: BP 143/71; RESP 16
--- NOTE | 2016-11-27 14:47 | PN ---
Date/Time of Note Date/Time of Note DATE: 11/27/16 TIME: 14:40 Assessment/Plan Lines/Catheters IV Catheter Type (from [facility]): Saline Lock [address] in Place (from [facility]): No Assessment/Plan Chief Complaint/Hosp Course 1. Abdominal pain with leukocytosis and CT diagnosis of acute appendicitis. Patient was offered operative versus medical treatment. At this time she continues to desire medical management and avoid operative treatment.; abdominal pain-resolved; leukocytosis normalized -IV antibiotics -IV fluids -patient may be discharged per medical team 2. Hypertension -Diet and medication optimization 3. Hyperlipidemia -Diet and medication optimization 4. History of breast cancer with mastectomy and reconstruction -Routine follow-ups with oncology and her primary surgeon 5. Hypernatremia -judicious fluids Thank you. Patient seen and examined in collaboration with Dr. Chester Barnard. Problems: Subjective 24 Hr Interval Summary Patient very anxious but feels much better. No c/o abdominal pain. +bowel function. No fevers, chills, sob, congested cough, n/v/d/dysuria, cp, palpitations. Exam/Review of Systems Vital Signs Vitals Vital Signs Date Time Temp Pulse Resp B/P Pulse Ox O2 Delivery O2 Flow Rate FiO2 11/27/16 14:15 98.0 67 16 143/71 97 Intake and Output 11/26/16 11/26/16 11/27/16 15:00 23:00 07:00 Intake Total 820 ml 1300 ml 680 ml Balance 820 ml 1300 ml 680 ml Exam Free Text/Dictation Constitutional: alert, oriented, No distress Psych: no nl mood/affect, anxiety, No confusion Head: atraumatic, normocephalic Eyes: EOMI, PERRL, nl conjunctiva, No icteric ENMT: mucosa pink and moist, nl external ears & nose, nl lips & teeth Neck: non-tender, supple, No jvd Respiratory: normal air movement, No congested cough, No labored breathing Cardiovascular: regular rate and rhythm, No edema Gastrointestinal: soft, non tender, No firm, No rebound or guarding Musculoskeletal: nl extremities to inspection, nl gait and stance, No joint tenderness Extremities: normal pulses, No calf tenderness, No cyanosis Neurological: nl mental status, nl speech, nl strength Skin: nl turgor, No diaphoresis, No ecchymosis, No rash or lesions Lymph: nl lymph nodes, nontender Results Result Diagram: 11/26/16 0518 11/26/16 0518 LIV WADSWORTH NP Nov 27, 2016 14:47
== END 2016-11-27 16:46 | disposition home or self-care (01) | DRG 394 ==
LOC: E/R 11:55 → PP2 15:15
PROVIDERS: ADMIT Internal Medicine; ATTEND Internal Medicine
DX: K35.80 Unspecified acute appendicitis (principal); E87.0 Hyperosmolality and hypernatremia; K76.0 Fatty (change of) liver, not elsewhere classified; R65.10 Systemic inflammatory response syndrome (SIRS) of non-infectious origin without acute organ dysfunction; Z80.3 Family history of malignant neoplasm of breast; I10 Essential (primary) hypertension; E78.5 Hyperlipidemia, unspecified
CPT/HCPCS: 36415; 71010; 74177; 80048; 80053; 80061; 81001; 83605; 83690; 83735; 84100; 85025; 85610; 85730; 87040; 87075; 87086; 93005; 96374; 96375; J0360; J2270; J2405; J2543; J3480; J7030; Q9967

== ENCOUNTER 2017-01-22 23:21 | Inpatient (IN) | payer OTHER ==
[~2017-01-22] VITALS: Ht 162.6 cm; Wt 60.2 kg
[~2017-01-22 23:21] MED LIST changes: +ASC500 PO; +CALC600T24 PO; +HYDR-3498 PO; -HYDR12.58 PO; +LEVO500T72 PO; +LISI1TAB4 PO; +METR500T PO; +VITA150T PO
[2017-01-22 23:25] VITALS: Ht 162.6 cm; Wt 60.2 kg
[2017-01-23] VITALS (24 sets, daily range): BP systolic 90–150; BP diastolic 49–80; PULSE 66–86; RESP 13–22
[2017-01-23] MEDS ORDERED: morphine 4 MG/ML VIAL IV STA (00:42)
[2017-01-23] MEDS ORDERED: ONDANSETRON 4 MG INJ IV STA (00:42)
[2017-01-23] MEDS ORDERED: SOD CHLORIDE 0.9% 1,000 ML IV STA (00:42)
[2017-01-23 01:30] LABS: ADD UMIC NO; UR ASCORBIC ACID NEGATIVE (NEGATIVE); UR BILIRUBIN (Dip) NEGATIVE (NEGATIVE); UR BLOOD (Dip) NEGATIVE (NEGATIVE); UR CLARITY CLEAR (CLEAR); UR COLOR YELLOW (YELLOW); UR GLUCOSE (Dip) NEGATIVE (NEGATIVE); UR KETONES (Dip) NEGATIVE (NEGATIVE); UR LEUKOCYTE ESTERASE (Dip) NEGATIVE Leu/ul (NEGATIVE); UR NITRITE (Dip) NEGATIVE (NEGATIVE); UR SPECIFIC GRAVITY (Dip) 1.023 (1.003-1.030); UR TOTAL PROTEIN (Dip) NEGATIVE (NEGATIVE); UR UROBILINOGEN (Dip) NEGATIVE (NEGATIVE)
[2017-01-23 01:37] LABS: ALBUMIN 4.9 g/dl (3.3-4.9); ALBUMIN/GLOBULIN RATIO 1.08; BILIRUBIN,INDIRECT 0.4 mg/dl (0-1.1); BILIRUBIN,TOTAL 0.4 mg/dl (0.2-1.3); CALCIUM 10.8 mg/dl (8.4-10.2); CREATININE 0.99 mg/dl (0.44-1.00); POTASSIUM 4.2 mmol/L (3.5-5.1); TOTAL PROTEIN 9.4 g/dl (6.1-8.1)
--- NOTE | 2017-01-23 01:49 | RADRPT ---
PROCEDURE: CT abdomen and pelvis without intravenous contrast. CLINICAL INDICATION: Pain. TECHNIQUE: CT of the abdomen/pelvis was performed utilizing axial images with reconstructions in s agittal and coronal planes. The administered radiation dose is CTDI 8.4 mGy, DLP 454 mGy-cm. One or more of the following dose reduction techniques were used: automated exposure control, adjustment of the mA and/or kV according to patient size and/or use of iterative reconstruction technique. DICOM images are available. COMPARISON: 11/22/2016 FINDINGS: Visualized Chest: Some calcified. Soft G O and right hilar lymph nodes are noted. Abdomen: The liver, spleen, pancreas, and adrenal glands are unremarkable. A stone is noted within the gall bladder. The gallbladder is contracted. The liver is diffusely decreased in attenuation, compatible with hepatic steatosis. The kidneys are without hydronephrosis. No definite urinary calculi are seen. The appendix is enlarged, seen in the right lower quadrant and measuring up to 14 mm. There is some mild periappendiceal inflammatory changes. No regional fluid collections are seen. There is no intra -abdominal free air. There is no evidence of bowel obstruction. Some diverticula are noted along the descending and sigmoid colon without evidence of diverticulitis. There is no evidence of intra-abdominal adenopathy or free fluid. Pelvis: There is no evidence of pelvic adenopathy. The uterus and ovaries are without enlargement. The uri nary bladder is unremarkable. There is trace pelvic free fluid. Osseous structures: Unremarkable. IMPRESSION: Appendicitis. Hepatic steatosis. Cholelithiasis. Mild colonic diverticulosis. RPTAT: HIKT .Quinn Andres MD, MD Date Time Electronically viewed and signed by .Quinn Andres MD, on 01/23/2017 01:48 .T/
[2017-01-23 02:08] LABS: BASOPHILS % 0.2 % (0.0-2.0); EOSINOPHILS % 0.2 % (0.0-7.0); HEMATOCRIT 36.8 % (37.0-47.0); HEMOGLOBIN 12.7 g/dl (12.0-16.0); LYMPHOCYTES # 1.4 10^3/ul (0.8-2.9); LYMPHOCYTES % 9.2 % (15.0-51.0); MEAN CORPUSCULAR HGB CONC 34.5 g/dl (32.0-37.0); MEAN CORPUSCULAR VOLUME 89.8 fl (82.0-101.0); MEAN PLATELET VOLUME 10.2 fl (7.4-10.4); MONOCYTE # 0.6 10^3/ul (0.3-0.9); MONOCYTES % 4.1 % (0.0-11.0); NEUTROPHIL # 13.2 10^3/ul (1.6-7.5); PLATELET COUNT 305 10^3/UL (140-415); WHITE BLOOD COUNT 15.3 10^3/ul (4.8-10.8)
[2017-01-23] MEDS ORDERED: D5W-0.45 NACL + KCL 20 MEQ 1,000 ML IV STA (02:29)
[2017-01-23] MEDS ORDERED: PIPER-TAZO 3.375 GM IV (PMX) 50 ML IV ONE (02:30)
[2017-01-23] MEDS ORDERED: HYDROmorphONE 0.5 MG/0.5 ML SYG IV STA (02:30)
[2017-01-23] MEDS ORDERED: SOD CHLORIDE 0.9% 1,000 ML IV SCH (03:48)
[2017-01-23] MEDS ORDERED: ONDANSETRON 4 MG INJ IV PRN ×4 (04:00→15:30)
[2017-01-23] MEDS ORDERED: ONDANSETRON 4 MG TAB PO PRN (04:00)
[2017-01-23] MEDS ORDERED: ACETAMINOPHEN 325 MG TAB PO PRN ×3 (04:00→15:00)
[2017-01-23] MEDS: FAMOTIDINE 20 MG INJ IV SCH ×3 (04:00→21:51)
[2017-01-23] MEDS ORDERED: NACL 0.9% 3 ML SYG IV SCH ×2 (04:00→11:00)
[2017-01-23] MEDS ORDERED: SALMETEROL/FLUTICASONE 250/50 INHA INH PRN (04:00)
[2017-01-23] MEDS ORDERED: ALBUTEROL HFA 8 GM INHALER INH PRN (04:00)
--- NOTE | 2017-01-23 04:45 | ERD ---
ER Documentation Chief Complaint Chief Complaint lower abd pain x 1 day HPI 66 year old female presenting with constant, severe, aching RLQ pain for 1 day. Pain radiated to suprapubic area. Worse with movement, no alleviating factors. Associated with nausea but no vomiting, fever, chills, diarrhea or constipation. Of note, patient was admitted 2 months ago for appendicitis and was treated with IV antibiotics only. ROS All systems reviewed and are negative except as per history of present illness. Medications Home Meds Active Scripts Hydrocodone Bit-Acetaminophen (Hydrocodone Bit-APAP) 5-325MG Tablet, 2 TAB PO Q6H Y for PAIN LEVEL 6-10, #30 TAB Prov:CRISTINA ESQUIVEL 11/26/16 Reported Medications Vitamin B Complex & Vit C No.4 (Super B Complex) Unknown Strength Tablet, 1 TAB PO DAILY, TAB 11/22/16 Calcium Carbonate* (Calcium Carbonate*) 600 MG Ca Tab, 1200 MG PO, TAB 11/22/16 Ascorbic Acid (Vitamin C) 500 Mg Tab, 500 MG PO DAILY, TAB 11/22/16 Lisinopril/Hydrochlorothiazide (Lisinopril-Hctz 10-12.5 mg Tab) 1 Each Tablet, 1 EACH PO DAILY, TAB 11/22/16 Albuterol Sulfate* (Albuterol Sulfate* HFA) 8.5 Gm Hfa.aer.ad, 2 PUFF IH Q4H Y for WHEEZING AND SOB, EA 06/05/14 Gemfibrozil* (Gemfibrozil*) 600 Mg Tablet, 600 MG PO DAILY, TAB 05/19/14 Salmeterol Xinaf/Fluticasone* (Advair*) 250-50 Diskus Inhaler, 1 INH INH DAILY Y for SHORTNESS OF BREATH, INH 05/19/14 Discontinued Scripts Metronidazole* (Flagyl*) 500 Mg Tablet, 500 MG PO Q8 for 10 Days, TAB Prov:CRISTINA ESQUIVEL 11/26/16 Levofloxacin* (Levaquin*) 500 Mg Tablet, 500 MG PO DAILY for 10 Days, TAB Prov:CRISTINA ESQUIVEL 11/26/16 Allergies Allergies: Coded Allergies: No Known Allergy (Unverified , 11/22/16) PMhx/Soc History of Surgery: Yes (RIGHT BREAST mastectomy) Anesthesia Reaction: Yes (VOMITING, SYNCOPE) Hx Neurological Disorder: No (DENIES) Hx Respiratory Disorders: Yes (ASTHMA) Hx Cardiac Disorders: Yes (HTN, HYPERLIPIDEMIA) Hx Psychiatric Problems: No Hx Miscellaneous Medical Probl: Yes (Breast CANCER) Hx Alcohol Use: No Hx Substance Use: No Hx Tobacco Use: No Smoking Status: Never smoker FmHx Family History: No diabetes Physical Exam Vitals Vital Signs Date Time Temp Pulse Resp B/P Pulse Ox O2 Delivery O2 Flow Rate FiO2 01/23/17 03:01 90 16 127/61 95 Room Air 01/23/17 00:00 79 17 149/80 99 Room Air 01/22/17 23:25 98.6 83 20 160/78 98 Physical Exam Const: no apparent distress, nontoxic Head: Atraumatic Eyes: Normal Conjunctiva ENT: Normal External Ears, Nose and Mouth. Neck: Full range of motion..~ No meningismus. Resp: Clear to auscultation bilaterally Cardio: Regular rate and rhythm, no murmurs Abd: Soft, Diffuse tenderness, most marked in the RLQ at mcburneys point. + rovsings. non distended. + guarding, no rebound. Normal bowel sounds Skin: No petechiae or rashes Back: No midline or flank tenderness Ext: No cyanosis, or edema Neur: Awake and alert Psych: Normal Mood and Affect Result Diagram: 01/23/174401/23/1744 Results 24 hrs Laboratory Tests Test 01/23/17 00:45 White Blood Count 15.310^3/ul Red Blood Count 4.1010^6/ul Hemoglobin 12.7g/dl Hematocrit 36.8% Mean Corpuscular Volume 89.8fl Mean Corpuscular Hemoglobin 31.0pg Mean Corpuscular Hemoglobin Concent 34.5g/dl Red Cell Distribution Width 13.0% Platelet Count 29827^3/UL Mean Platelet Volume 10.2fl Neutrophils % 86.0% Lymphocytes % 9.2% Monocytes % 4.1% Eosinophils % 0.2% Basophils % 0.2% Nucleated Red Blood Cells % 0.0/100WBC Neutrophils # 13.210^3/ul Lymphocytes # 1.410^3/ul Monocytes # 0.610^3/ul Eosinophils # 0.010^3/ul Basophils # 0.010^3/ul Nucleated Red Blood Cells # 0.010^3/ul Urine Color YELLOW Urine Clarity CLEAR Urine pH 5.0 Urine Specific [place] 1.023 Urine Ketones NEGATIVEmg/dL Urine Nitrite NEGATIVEmg/dL Urine Bilirubin NEGATIVEmg/dL Urine Urobilinogen NEGATIVEmg/dL Urine Leukocyte Esterase NEGATIVELeu/ul Urine Hemoglobin NEGATIVEmg/dL Urine Glucose NEGATIVEmg/dL Urine Total Protein NEGATIVEmg/dl Sodium Level 139mmol/L Potassium Level 4.2mmol/L Chloride Level 97mmol/L Carbon Dioxide Level 28mmol/L Anion Gap 18 Blood Urea Nitrogen 23mg/dl Creatinine 0.99mg/dl Glucose Level 126mg/dl Calcium Level 10.8mg/dl Total Bilirubin 0.4mg/dl Direct Bilirubin 0.00mg/dl Indirect Bilirubin 0.4mg/dl Aspartate Amino Transf (AST/SGOT) 36IU/L Alanine Aminotransferase (ALT/SGPT) 42IU/L Alkaline Phosphatase 83IU/L Total Protein 9.4g/dl Albumin 4.9g/dl Globulin 4.50g/dl Albumin/Globulin Ratio 1.08 Lipase 144U/L Current Medications Medications (Trade) Dose Ordered Sig/Tootie Route PRN Reason Start Time Stop Time Status Last Admin Dose Admin Sodium Chloride (NS) 1,000 ml @ 1,000 mls/hr Q1H STAT IV 01/23/17 00:42 01/23/17 01:41 UT 01/23/17 00:47 Morphine Sulfate (morphine) 4 mg ONCE STAT IV 01/23/17 00:42 01/23/17 00:43 DC 01/23/17 00:47 Ondansetron HCl 4 mg 4 mg ONCE STAT IV 01/23/17 00:42 01/23/17 00:43 UT 01/23/17 00:47 Piperacillin Sod/ Tazobactam Sod 50 ml @ 100 mls/hr ONCE ONCE IV 01/23/17 02:30 01/23/17 02:59 DC 01/23/17 02:58 Potassium Chloride/Dextrose/ Sod Cl (D5-1/2ns + KCl 20 Meq) 1,000 ml @ 125 mls/hr Q8H STAT IV 01/23/17 02:29 01/23/17 10:22 DC 01/23/17 02:58 Hydromorphone HCl 0.5 mg 0.5 mg ONCE STAT IV 01/23/17 02:30 01/23/17 02:31 DC 01/23/17 02:58 Sodium Chloride (NS) 1,000 ml @ 100 mls/hr Q10H IV 01/23/17 03:48 01/23/17 10:43 DC Procedures/MDM Labs Reviewed: CBC: leukocytosis CMP: elevated BUN UA: negative CT Abdomen/Pelvis: Appendicitis. Hepatic steatosis. Cholelithiasis Mild colonic diverticulosis. .Quinn Andres MD, MD Date Time Electronically viewed and signed by .Quinn Andres MD, MD on 01/23/2017 01:48 MDM Patient is presenting with recurrent appendicitis. Vitals are stable. IV fluids , analgesics, and antiemetics given. CT confirmed acute appendicitis. IV Zosyn started. K spoke with Evon Anthony who saw and conservatively treated the patient on her last admission for appendicitis. He asked me to call the surgeon data integration developer. Spoke with Dr. Marrero regarding patient. He will take to the OR later today. Patient admitted to Dr. Sears. Departure Diagnosis: Primary Impression: Acute appendicitis Acute appendicitis type: with localized peritonitis Qualified Code: K35.3 - Acute appendicitis with localized peritonitis Condition: Serious HERMES IYER MD Jan 23, 2017 04:45 Albuterol (Ventolin Hfa) 2 puff Q4H RESP THERAPY PRN INH WHEEZING AND SOB 01/23/17 04:00 Ascorbic Acid (Vitamin C) 500 mg DAILY PO 01/23/17 09:00 Gemfibrozil (Lopid) 600 mg DAILY PO 01/23/17 09:00 Salmeterol Xinafoate/ Fluticasone (Advair 250/50 Diskus) 1 inh DAILY PRN INH SHORTNESS OF BREATH 01/23/17 04:00 HERMES IYER MD Jan 23, 2017 04:45
[2017-01-23] MEDS: GEMFIBROZIL 600 MG TAB PO SCH (08:35)
[2017-01-23] MEDS: ASCORBIC ACID 500 MG TAB PO SCH (08:35)
[2017-01-23] MEDS ORDERED: MAGNESIUM HYDROXIDE 30ML CUP PO PRN (11:00)
[2017-01-23] MEDS ORDERED: DOCUSATE SODIUM 100 MG CAP PO PRN (11:00)
[2017-01-23] MEDS ORDERED: morphine 2 MG INJ IV PRN ×2 (11:00→15:00)
[2017-01-23] MEDS ORDERED: BISACODYL 10 MG SUPP PR PRN (11:00)
[2017-01-23 11:06] LABS: INR 1.1; PROTIME 14.4 Sec (11.9-14.9); PT RATIO 1.1
[2017-01-23 11:07] LABS: PARTIAL THROMBOPLASTIN TIME 30.5 Sec (25.0-35.0)
--- NOTE | 2017-01-23 11:07 | HP ---
Date/Time of Note Date/Time of Note DATE: 01/23/17 TIME: 10:49 Assessment/Plan VTE Prophylaxis VTE Prophylaxis Intervention: SCD's Lines/Catheters IV [facility] Assessment/Plan Assessment/Plan 66-year-old female with: 1. Acute appendicitis: Again seen on CAT scan and also based on clinical findings, patient with white blood cell count of 15 and RLQ abdominal pain predominantly. She agrees with surgical intervention this time, of note on her previous admission, she repeatedly refused surgical intervention and insisted on being treated with antibiotics only, which was suboptimal and this was specified to her by myself and general surgery. This time around she agrees with surgical intervention. Dr. Marrero who was on-call overnight is consulted and will be seeing the patient. Continue Zosyn, continue IV fluids, keep patient n.p.o.. EKG within normal limits, no previous history of cardiac disease. Patient is considered a low risk for complication based on her current clinical status and history. No additional studies needed. Chest x-ray and PT PTT INR pending. 2. Right breast cancer, status post mastectomy and reconstructive surgery. Stable 3. Hypertension: Resume home medication once able to take p.o. 4. Hyperlipidemia: Resume gemfibrozil once able to take p.o. 5. Asthma, continue Advair and nebulizer treatment as needed. Currently stable and on room air. Prophylaxis: Pepcid for GI prophylaxis, SCDs for DVT prophylaxis Disposition: Keep n.p.o., IV fluids, IV antibiotics, surgical evaluation pending for possible surgical intervention. HPI/ROS Admit Date/Time Admit Date/Time Jan 23, 2017 at 03:49 Hx of Present Illness Chief complaint: Abdominal pain, right lower quadrant predominantly History of presenting illness: This is a 66-year-old female with previous history of breast cancer, hypertension, hyperlipidemia, was seen here at [facility] almost a month ago with acute appendicitis, she refused surgery despite repeated discussion with myself and general surgery at that time , she improved somewhat clinically and was discharged home with antibiotics per her wishes. She represents in the emergency department overnight with complaints of abdominal pain is specifically right lower quadrant abdominal pain , acute onset at 4 PM yesterday with chills, fevers up to 101 by 7 PM, nausea. CAT scan of the abdomen and pelvis did show acute appendicitis. Patient has been maintained n.p.o., started on IV antibiotics and a general surgery was consulted. I had a discussion with the patient this morning and she agrees with surgical intervention on this admission as she does concede that antibiotics are not enough as treatment. Dr. Marrero has been notified, he will be seeing seeing the patient in scheduling her for surgery. Patient denies any previous history of cardiac disease, renal disease or pulmonary disease. Her EKG is within normal. She may proceed with surgery today. She reports a previous history of asthma but has not had any exacerbations lately and only uses inhaler as needed. Chest x-ray has been ordered preoperatively. Also PT, PTT and INR pending. ROS Constitutional: no complaints Eyes: no complaints Respiratory: no complaints Cardiovascular: no complaints Gastrointestinal: pain (Right lower quadrant) Genitourinary: no complaints Musculoskeletal: no complaints Skin: no complaints Neurologic: confusion Psychological: no complaints PMH/Family/Social Past Medical History Right breast cancer Hyperlipidemia Hypertension Asthma Past Surgical History Status post radical right mastectomy 2014 followed by reconstructive surgery and implant in February 2016 s/p remotely Family History Significant Family History: no pertinent family hx Social History Alcohol Use: none Smoking Status: Never smoker Drug Use: none Exam/Review of Systems Vital Signs Vitals Vital Signs Date Time Temp Pulse Resp B/P Pulse Ox O2 Delivery O2 Flow Rate FiO2 01/23/17 07:52 98.2 66 20 117/56 97 01/23/17 05:46 Room Air Intake and Output 01/22/17 01/22/17 01/23/17 15:00 23:00 07:00 Intake Total 250 ml Balance 250 ml Exam Constitutional: alert, oriented, well developed Respiratory: clear to auscultation, normal air movement Cardiovascular: nl pulses, regular rate and rhythm Gastrointestinal: soft, tender (Right lower quadrant predominantly but also lower abdomen) Musculoskeletal: nl extremities to inspection, nl gait and stance Extremities: normal pulses, other (No edema, clubbing or cyanosis) Neurological: NET DEVELOPER ARCHITECT II-XII intact, nl mental status, nl speech, nl strength Labs Result Diagram: 01/23/175 01/23/175 Medications Medications Current Medications Ondansetron HCl (Zofran Tab) 4 mg Q6H PRN PO NAUSEA AND/OR VOMITING; Start at 04:00 Acetaminophen (Tylenol Tab) 650 mg Q6H PRN PO PAIN LEVEL 1-3 OR FEVER; Start 01/23/17 at 04:00 Acetaminophen/ Hydrocodone Bitart ([place] (5/325)) 1 tab Q6H PRN PO MODERATE PAIN LEVEL 4-6; Start 01/23/17 at 04:00 Famotidine (Pepcid Iv) 20 mg Q12 IV ; Start 01/23/17 at 04:00 Ascorbic Acid (Vitamin C) 500 mg DAILY PO ; Start 01/23/17 at 09:00 Gemfibrozil (Lopid) 600 mg DAILY PO ; Start 01/23/17 at 09:00 Salmeterol Xinafoate/ Fluticasone 1 inh 1 inh DAILY PRN INH SHORTNESS OF BREATH ; Start 01/23/17 at 04:00 Dextrose/Sodium Chloride (D5-NS) 1,000 ml @ 100 mls/hr Q10H IV ; Start at 10:30 Procedures Procedures PROCEDURE: CT abdomen and pelvis without intravenous contrast. CLINICAL INDICATION: Pain. TECHNIQUE: CT of the abdomen/pelvis was performed utilizing axial images with reconstructions in sagittal and coronal planes. The administered radiation dose is CTDI 8.4 mGy, DLP 454 mGy-cm. One or more of the following dose reduction techniques were used: automated exposure control, adjustment of the mA and/or kV according to patient size and/or use of iterative reconstruction technique. DICOM images are available. COMPARISON: 11/22/2016 FINDINGS: Visualized Chest: Some calcified. Soft G O and right hilar lymph nodes are noted. Abdomen: The liver, spleen, pancreas, and adrenal glands are unremarkable. A stone is noted within the gallbladder. The gallbladder is contracted. The liver is diffusely decreased in attenuation, compatible with hepatic steatosis. The kidneys are without hydronephrosis. No definite urinary calculi are seen. The appendix is enlarged, seen in the right lower quadrant and measuring up to 14 mm. There is some mild periappendiceal inflammatory changes. No regional fluid collections are seen. There is no intra-abdominal free air. There is no evidence of bowel obstruction. Some diverticula are noted along the descending and sigmoid colon without evidence of diverticulitis. There is no evidence of intra-abdominal adenopathy or free fluid. Pelvis: There is no evidence of pelvic adenopathy. The uterus and ovaries are without enlargement. The urinary bladder is unremarkable. There is trace pelvic free fluid. Osseous structures: Unremarkable. IMPRESSION: Appendicitis. Hepatic steatosis. Cholelithiasis. Mild colonic diverticulosis. RPTAT: HIKT .Quinn Andres MD, MD Date Time Electronically viewed and signed by .Quinn Andres MD, MD on 01/23/2017 01:48 EKG: Reviewed by myself, normal sinus rhythm, no acute or chronic ST or T-wave abnormalities Chest x-ray pending CRISTINA ESQUIVEL Jan 23, 2017 10:59
[2017-01-23] MEDS: DEXTROSE 5%-0.9% NACL 1,000 ML IV SCH ×2 (11:30→20:30)
[2017-01-23] MEDS: PIPER-TAZO 3.375 GM IV (PMX) 50 ML IVPB SCH ×2 (11:31→21:52)
--- NOTE | 2017-01-23 12:05 | RADRPT ---
PROCEDURE: XR Chest. CLINICAL INDICATION: Preop TECHNIQUE: An AP view of the chest was obtained. COMPARISON: DR CHEST 11/22/2016; PAUL CHEST 06/05/2014; PAUL CHEST 06/05/2014 FINDINGS: There is prominence of the interstitial markings. No pleural effusion or pneumothorax is seen. Th e cardiomediastinal silhouette is mildly enlarged. The osseous structures demonstrate senescent ch anges. IMPRESSION: 1. Mild prominence of the interstitial markings, may reflect mild underlying interstitial edema or chronic lung changes. No significant interval change. 2. Mild cardiomegaly. RPTAT: HH .Milvia Mcguire MD, MD Date Time Electronically viewed and signed by .Milvia Mcguire MD, MD on 01/23/2017 12:05 .G/
--- NOTE | 2017-01-23 14:24 | CONS ---
Date/Time of Note Date/Time of Note DATE: 01/23/17 TIME: 14:23 Assessment/Plan Assessment/Plan Additional Assessment/Plan Recurrent acute appendicitis I discussed laparoscopic, possible open, appendectomy with the patient. All benefits, risks, alternatives discussed in detail. All questions were answered. The patient elects to proceed. Consultation Date/Type/Reason Admit Date/Time Jan 23, 2017 at 03:49 Date of Consultation: Jan 23, 2017 Hx of Present Illness This is a 66-year-old female with previous history of breast cancer, hypertension, hyperlipidemia, was seen here at [facility] [place] almost a month ago with acute appendicitis, she refused surgery despite repeated discussion at that time. She improved somewhat clinically and was discharged home with antibiotics per her wishes. She represents in the emergency department overnight with complaints of abdominal pain is specifically right lower quadrant abdominal pain, acute onset at 4 PM yesterday with chills, fevers up to 101 by 7 PM, nausea. CAT scan of the abdomen and pelvis did show acute appendicitis. Patient now agrees to surgery. Past Medical History Medical History: high cholesterol, hypertension, other (asthma, breast cancer) Past Surgical History Past Surgical Hx: other (bilateral mastectomy) Family History Significant Family History: no pertinent family hx Social History Alcohol Use: none Smoking Status: Never smoker Drug Use: none Exam/Review of Systems Vital Signs Vitals Vital Signs Date Time Temp Pulse Resp B/P Pulse Ox O2 Delivery O2 Flow Rate FiO2 01/23/17 07:52 98.2 66 20 117/56 97 01/23/17 05:46 Room Air Intake and Output 01/22/17 01/22/17 01/23/17 15:00 23:00 07:00 Intake Total 250 ml Balance 250 ml Exam Constitutional: oriented, well developed Psych: no complaints Eyes: nl conjunctiva ENMT: nl external ears & nose Neck: supple Respiratory: clear to auscultation Cardiovascular: regular rate and rhythm Neurological: DIGITAL DESIGNER II-XII intact Skin: nl turgor Results Result Diagram: 01/23/17 0045 01/23/175 Results 24 hrs Laboratory Tests Test 01/23/17 00:45 01/23/17 10:37 White Blood Count 15.3 #H Red Blood Count 4.10 #L Hemoglobin 12.7 # Hematocrit 36.8 #L Mean Corpuscular Volume 89.8 Mean Corpuscular Hemoglobin 31.0 Mean Corpuscular Hemoglobin Concent 34.5 Red Cell Distribution Width 13.0 Platelet Count 305 # Mean Platelet Volume 10.2 Neutrophils % 86.0 H Lymphocytes % 9.2 L Monocytes % 4.1 Eosinophils % 0.2 Basophils % 0.2 Nucleated Red Blood Cells % 0.0 Neutrophils # 13.2 H Lymphocytes # 1.4 Monocytes # 0.6 Eosinophils # 0.0 Basophils # 0.0 Nucleated Red Blood Cells # 0.0 Urine Color YELLOW Urine Clarity CLEAR Urine pH 5.0 Urine Specific [place] 1.023 Urine Ketones NEGATIVE Urine Nitrite NEGATIVE Urine Bilirubin NEGATIVE Urine Urobilinogen NEGATIVE Urine Leukocyte Esterase NEGATIVE Urine Hemoglobin NEGATIVE Urine Glucose NEGATIVE Urine Total Protein NEGATIVE Sodium Level 139 Potassium Level 4.2 Chloride Level 97 Carbon Dioxide Level 28 Anion Gap 18 H Blood Urea Nitrogen 23 H Creatinine 0.99 Glucose Level 126 Calcium Level 10.8 H Total Bilirubin 0.4 Direct Bilirubin 0.00 Indirect Bilirubin 0.4 Aspartate Amino Transf (AST/SGOT) 36 Alanine Aminotransferase (ALT/SGPT) 42 Alkaline Phosphatase 83 Total Protein 9.4 H Albumin 4.9 Globulin 4.50 H Albumin/Globulin Ratio 1.08 Lipase 144 Prothrombin Time 14.4 Prothrombin Time Ratio 1.1 INR International Normalized Ratio 1.10 Activated Partial Thromboplast Time 30.5 Imaging Free Text/Dictation Patient: ZEINA PERLA : 1950 Age: 66 Sex: F MR #: [id number] DOS: 01/23/17 0042 Ordering MD: HERMES IYER MD Location: E/R Room/Bed: PROCEDURE: CT abdomen and pelvis without intravenous contrast. CLINICAL INDICATION: Pain. TECHNIQUE: CT of the abdomen/pelvis was performed utilizing axial images with reconstructions in sagittal and coronal planes. The administered radiation dose is CTDI 8.4 mGy, DLP 454 mGy-cm. One or more of the following dose reduction techniques were used: automated exposure control, adjustment of the mA and/or kV according to patient size and/or use of iterative reconstruction technique. DICOM images are available. COMPARISON: 11/22/2016 FINDINGS: Visualized Chest: Some calcified. Soft G O and right hilar lymph nodes are noted. Abdomen: The liver, spleen, pancreas, and adrenal glands are unremarkable. A stone is noted within the gallbladder. The gallbladder is contracted. The liver is diffusely decreased in attenuation, compatible with hepatic steatosis. The kidneys are without hydronephrosis. No definite urinary calculi are seen. The appendix is enlarged, seen in the right lower quadrant and measuring up to 14 mm. There is some mild periappendiceal inflammatory changes. No regional fluid collections are seen. There is no intra-abdominal free air. There is no evidence of bowel obstruction. Some diverticula are noted along the descending and sigmoid colon without evidence of diverticulitis. There is no evidence of intra-abdominal adenopathy or free fluid. Pelvis: There is no evidence of pelvic adenopathy. The uterus and ovaries are without enlargement. The urinary bladder is unremarkable. There is trace pelvic free fluid. Osseous structures: Unremarkable. IMPRESSION: Appendicitis. Hepatic steatosis. Cholelithiasis. Medications Medications Current Medications Acetaminophen (Tylenol Tab) 650 mg Q6H PRN PO PAIN LEVEL 1-3 OR FEVER Last administered on 01/23/17 11:34; Admin Dose 650 MG; Start 01/23/17 at 04:00 Acetaminophen/ Hydrocodone Bitart ([place] (5/325)) 1 tab Q6H PRN PO MODERATE PAIN LEVEL 4-6; Start 01/23/17 at 04:00 Famotidine (Pepcid Iv) 20 mg Q12 IV ; Start 01/23/17 at 04:00 Ascorbic Acid (Vitamin C) 500 mg DAILY PO ; Start 01/23/17 at 09:00 Gemfibrozil 600 mg 600 mg DAILY PO ; Start 01/23/17 at 09:00 Dextrose/Sodium Chloride 1,000 ml @ 100 mls/hr Q10H IV Last administered on 11:30; Admin Dose 100 MLS/HR; Start 01/23/17 at 10:30 Piperacillin Sod/ Tazobactam Sod (Zosyn 3.375gm/ 50 ml (Pmx)) 50 ml @ 100 mls/ hr Q8 IVPB Last administered on 01/23/17 11:31; Admin Dose 100 MLS/HR; Start 01/23/17 at 11:00 Ondansetron HCl (Zofran Inj) 4 mg Q6H PRN IV NAUSEA AND/OR VOMITING; Start at 11:00 Morphine Sulfate (morphine) 2 mg Q4H PRN IV SEVERE PAIN LEVEL 7-10; Start at 11:00 Docusate Sodium (Colace) 100 mg Q12H PRN PO CONSTIPATION; Start 01/23/17 at 11 :00 Magnesium Hydroxide (Milk Of Mag) 30 ml DAILY PRN PO CONSTIPATION; Start 01/23 at 11:00 Bisacodyl (Dulcolax Supp) 10 mg DAILY PRN OR CONSTIPATION; Start 01/23/17 at 11:00 Salmeterol Xinafoate/ Fluticasone (Advair 250/50 Diskus) 1 inh BID INH ; Start 01/23/17 at 21:00 JARED CARL MD Jan 23, 2017 14:24
[2017-01-23] MEDS ORDERED: BUPIVACAINE 0.25%/EPI (SDV) 30 ML INJ ONE (14:33)
[2017-01-23] MEDS ORDERED: LIDOCAINE 1%/EPI 30 ML INJ ONE (14:34)
--- NOTE | 2017-01-23 14:37 | SIPON ---
Date/Time of Note Date/Time of Note DATE: 01/23/17 TIME: 14:36 Operative Report Preoperative Diagnosis Acute appendicitis Postoperative Diagnosis Same Operation/Procedure Performed Laparoscopic appendectomy Surgeon see signature line assistant business manager None Anesthesia: general Estimated blood loss: 10 - 50 ml's Transfusion Required none Specimen Appendix Grafts/Implants none Complications none JARED CARL MD Jan 23, 2017 14:37
--- NOTE | 2017-01-23 14:39 | OPR ---
Date/Time of Note Date/Time of Note DATE: 01/23/17 TIME: 14:37 Operative Report Procedure Date: Jan 23, 2017 Preoperative Diagnosis Acute appendicitis Postoperative Diagnosis Same Operation/Procedure Performed Laparoscopic appendectomy Surgeon see signature line Patient Accounts Manager None Anesthesia Type: general Anesthesiologist: JOSE GUPTA MD Estimated Blood Loss: minimal Transfusion none Specimen Appendix Grafts/Implants none Complications none Pt Condition Post Procedure: stable Disposition: PACU Indications The patient is a 66-year-old female who had acute appendicitis back in November. She refused surgical management at that time. She presented to the ER last night with right lower quadrant pain. Her workup was consistent with acute appendicitis. I discussed laparoscopic, possible open, appendectomy with the patient. All benefits, risks, alternatives discussed in detail. The question all questions answered. The patient elected to proceed. Procedure Description The patient was brought to operative room placed supine on the table. After preop antibiotics and SCDs were applied, the patient was intubated and the abdomen was cleaned, prepped, and draped in usual sterile fashion. All incisions were infiltrated with 1 spotting with epi house Marcaine prior to incision. A 5 mm incision was made in the umbilicus. Using a 5 minute laparoscopic containing trocar, the abdomen was entered direct vision insufflated 50 mm of CO2. Under direct vision, the following trochars were placed: A 5 mm right lower quadrant and a left lower quadrant 12 mm. The appendix was visualized and was consistent with acute perforated appendicitis. I made a rent in the mesentery to base the appendix divided the cecum at the base of the appendix with a 35 mm Endo linear cutter white load. The appendiceal mesentery was then divided with a 35 mm Endo linear cutter white load. The appendix was then removed the 12 mm trocar site. I visualized my staple lines. There was oozing from the vascular staple line which was controlled with 5 mm clips. I then turned my attention to the pelvis. I irrigated out the right lower quadrant and pelvis until effluent was clear. I then desufflated the abdomen moved all trochars. The fascia of the 12 mm trocar site was closed with 0 Vicryl. Skin incisions were all closed with 4 Monocryl, Mastisol, and Steri-Strips. A 2 x 2 gauze and Tegaderm was placed over the MOE drain exit site. The patient tolerated the procedure well, was extubated in the OR, transferred to the recovery room stable condition. JARED CARL MD Jan 23, 2017 14:39
[2017-01-23] MEDS ORDERED: DEXAMETHASONE 4 MG/ML 1 ML INJ ONE (14:48)
[2017-01-23] MEDS ORDERED: NEOSTIGMINE 3 MG/3 ML SYRINGE ONE ×2 (14:48→15:28)
[2017-01-23] MEDS ORDERED: ONDANSETRON 4 MG INJ ONE (14:48)
[2017-01-23] MEDS ORDERED: ROPIVACAINE 0.2% 20 ML VIAL ONE (14:48)
[2017-01-23] MEDS ORDERED: METOCLOPRAMIDE 10 MG INJ ONE (14:48)
[2017-01-23] MEDS ORDERED: MIDAZOLAM 1 MG/ML 2 ML INJ ONE (14:48)
[2017-01-23] MEDS ORDERED: OXYCODONE/ACETAMINOPHEN (5/325) TAB PO PRN (15:00)
[2017-01-23] MEDS ORDERED: KETOROLAC 30 MG INJ ONE (15:06)
[2017-01-23] MEDS ORDERED: GLYCOPYRROLATE 0.4 MG INJ ONE (15:28)
[2017-01-23] MEDS ORDERED: MEPERIDINE 25 MG INJ IV PRN (15:30)
[2017-01-23] MEDS ORDERED: METOCLOPRAMIDE 10 MG INJ IV PRN (15:30)
[2017-01-23] MEDS ORDERED: HYDROmorphONE (0.2 MG/ML) 10ML SYG IV PRN ×3 (15:30)
[2017-01-23] MEDS ORDERED: DIPHENHYDRAMINE 50 MG INJ IV PRN (15:30)
[2017-01-23] MEDS ORDERED: ROCURONIUM 50 MG INJ ONE (15:40)
[2017-01-23] MEDS ORDERED: PROPOFOL 40 ML ONE (15:40)
[2017-01-23] MEDS ORDERED: LIDOCAINE 2% (SDV) 5 ML INJ ONE (15:40)
[2017-01-23] MEDS: KETOROLAC 15 MG INJ IV SCH ×2 (16:44→21:52)
[2017-01-23] MEDS: D5-NS + KCL 20 MEQ 1,000 ML IV SCH (18:53)
[2017-01-23] MEDS: SALMETEROL/FLUTICASONE 250/50 INHA INH SCH (21:00)
[2017-01-23] MEDS ORDERED: PIPER-TAZO 3.375 GM IV (PMX) 50 ML IVPB SCH (22:00)
[2017-01-24 00:26] VITALS: BP 109/53; RESP 20
[2017-01-24] MEDS: D5-NS + KCL 20 MEQ 1,000 ML IV SCH ×3 (00:42→17:27)
[2017-01-24] MEDS: KETOROLAC 15 MG INJ IV SCH ×4 (03:00→21:20)
[2017-01-24 05:24] LABS: BASOPHILS % 0.1 % (0.0-2.0); HEMATOCRIT 26.4 % (37.0-47.0); HEMOGLOBIN 8.9 g/dl (12.0-16.0); LYMPHOCYTES # 0.9 10^3/ul (0.8-2.9); LYMPHOCYTES % 7.9 % (15.0-51.0); MEAN CORPUSCULAR HEMOGLOBIN 30.6 pg (29.0-33.0); MEAN CORPUSCULAR HGB CONC 33.7 g/dl (32.0-37.0); MEAN CORPUSCULAR VOLUME 90.7 fl (82.0-101.0); MEAN PLATELET VOLUME 10.1 fl (7.4-10.4); MONOCYTE # 0.5 10^3/ul (0.3-0.9); MONOCYTES % 4.7 % (0.0-11.0); NEUTROPHIL # 9.7 10^3/ul (1.6-7.5); NEUTROPHILS % 86.9 % (39.0-77.0); PLATELET COUNT 201 10^3/UL (140-415); RED BLOOD COUNT 2.91 10^6/ul (4.20-5.40); RED CELL DISTRIBUTION WIDTH 13.2 % (11.5-14.5); WHITE BLOOD COUNT 11.2 10^3/ul (4.8-10.8)
[2017-01-24] MEDS: PIPER-TAZO 3.375 GM IV (PMX) 50 ML IVPB SCH ×3 (05:31→21:20)
[2017-01-24 06:08] LABS: CALCIUM 8.7 mg/dl (8.4-10.2); CREATININE 1.03 mg/dl (0.44-1.00); POTASSIUM 4.4 mmol/L (3.5-5.1)
[2017-01-24 06:10] LABS: PHOSPHORUS 3.2 mg/dl (2.5-4.9)
[2017-01-24] MEDS: DEXTROSE 5%-0.9% NACL 1,000 ML IV SCH (06:30)
[2017-01-24 08:05] VITALS: BP 133/60; RESP 18
[2017-01-24] MEDS: ASCORBIC ACID 500 MG TAB PO SCH (08:36)
[2017-01-24] MEDS: FAMOTIDINE 20 MG INJ IV SCH ×2 (08:36→21:20)
[2017-01-24] MEDS: SALMETEROL/FLUTICASONE 250/50 INHA INH SCH ×2 (08:36→21:00)
[2017-01-24] MEDS: GEMFIBROZIL 600 MG TAB PO SCH (08:36)
[2017-01-24] MEDS: ENOXAPARIN 40 MG/0.4 ML SYG SC SCH (08:49)
--- NOTE | 2017-01-24 11:39 | PN ---
Date/Time of Note Date/Time of Note DATE: 01/24/17 TIME: 11:38 Assessment/Plan VTE Prophylaxis VTE Prophylaxis Intervention: ambulation Lines/Catheters IV Catheter Type (from Nrsg): Saline Lock Urinary Cath still in place: No Assessment/Plan Assessment/Plan 1. POD#1 appy 2. significant drop in hgb, monitor, consider repeat ct for post-op bleed if pain or hgb not resolved Subjective 24 Hr Interval Summary Free Text/Dictation c/o lower abdo pain, little relief with pain meds, no flatus, or stool, + urination Exam/Review of Systems Vital Signs Vitals Vital Signs Date Time Temp Pulse Resp B/P Pulse Ox O2 Delivery O2 Flow Rate FiO2 01/24/17 08:05 98.4 59 18 133/60 96 01/23/17 18:45 Room Air Intake and Output 01/23/17 01/23/17 01/24/17 15:00 23:00 07:00 Intake Total 550 ml 900 ml 930 ml Output Total 15 ml 1100 ml Balance 550 ml 885 ml -170 ml Exam nad, ctab, rrr soft tender jessica in hypogastrium, distended Results Result Diagram: 01/24/17 0440 01/24/17 0440 Results 24 hrs Laboratory Tests Test 01/24/17 04:40 White Blood Count 11.2 #H Red Blood Count 2.91 #L Hemoglobin 8.9 #L Hematocrit 26.4 #L Mean Corpuscular Volume 90.7 Mean Corpuscular Hemoglobin 30.6 Mean Corpuscular Hemoglobin Concent 33.7 Red Cell Distribution Width 13.2 Platelet Count 201 # Mean Platelet Volume 10.1 Neutrophils % 86.9 H Lymphocytes % 7.9 L Monocytes % 4.7 Eosinophils % 0.0 Basophils % 0.1 Nucleated Red Blood Cells % 0.0 Neutrophils # 9.7 H Lymphocytes # 0.9 Monocytes # 0.5 Eosinophils # 0.0 Basophils # 0.0 Nucleated Red Blood Cells # 0.0 Sodium Level 143 Potassium Level 4.4 Chloride Level 111 H Carbon Dioxide Level 23 Anion Gap 13 Blood Urea Nitrogen 14 # Creatinine 1.03 H Glucose Level 120 Calcium Level 8.7 Phosphorus Level 3.2 Magnesium Level 2.0 Medications Medications Current Medications Acetaminophen (Tylenol Tab) 650 mg Q6H PRN PO PAIN LEVEL 1-3 OR FEVER Last administered on 01/23/17 11:34; Admin Dose 650 MG; Start 01/23/17 at 04:00 Acetaminophen/ Hydrocodone Bitart ([place] (5/325)) 1 tab Q6H PRN PO MODERATE PAIN LEVEL 4-6; Start 01/23/17 at 04:00 Famotidine (Pepcid Iv) 20 mg Q12 IV Last administered on 01/24/17 08:36; Admin Dose 20 MG; Start 01/23/17 at 04:00 Ascorbic Acid (Vitamin C) 500 mg DAILY PO Last administered on 01/24/17 08:36 ; Admin Dose 500 MG; Start 01/23/17 at 09:00 Gemfibrozil 600 mg 600 mg DAILY PO Last administered on 01/24/17 08:36; Admin Dose 600 MG; Start 01/23/17 at 09:00 Dextrose/Sodium Chloride 1,000 ml @ 100 mls/hr Q10H IV Last administered on 11:30; Admin Dose 100 MLS/HR; Start 01/23/17 at 10:30 Piperacillin Sod/ Tazobactam Sod (Zosyn 3.375gm/ 50 ml (Pmx)) 50 ml @ 100 mls/ hr Q8 IVPB Last administered on 01/24/17 05:31; Admin Dose 100 MLS/HR; Start 01/23/17 at 11:00 Ondansetron HCl (Zofran Inj) 4 mg Q6H PRN IV NAUSEA AND/OR VOMITING; Start at 11:00 Morphine Sulfate (morphine) 2 mg Q4H PRN IV SEVERE PAIN LEVEL 7-10; Start at 11:00 Docusate Sodium (Colace) 100 mg Q12H PRN PO CONSTIPATION; Start 01/23/17 at 11 :00 Magnesium Hydroxide (Milk Of Mag) 30 ml DAILY PRN PO CONSTIPATION; Start 01/23 at 11:00 Bisacodyl (Dulcolax Supp) 10 mg DAILY PRN [place] CONSTIPATION; Start 01/23/17 at 11:00 Salmeterol Xinafoate/ Fluticasone (Advair 250/50 Diskus) 1 inh BID INH ; Start 01/23/17 at 21:00 Morphine Sulfate (morphine) 2 mg Q2H PRN IV PAIN LEVEL 6-10; Start 01/23/17 at 15:00 Oxycodone/ Acetaminophen (Percocet (5/ 325)) 1 tab Q6H PRN PO PAIN LEVEL 6-10; Start 01/23/17 at 15:00 Ketorolac Tromethamine (Toradol) 15 mg Q6H IV Last administered on 01/24/17 08:36; Admin Dose 15 MG; Start 01/23/17 at 15:00; Stop 01/25/17 at 09:01 Acetaminophen (Tylenol Tab) 650 mg Q6H PRN PO PAIN AND OR ELEVATED TEMP; Start 01/23/17 at 15:00 Ibuprofen (Motrin) 600 mg Q6H PRN PO PAIN LEVEL 1-5; Start 01/25/17 at 09:30 Ondansetron HCl 4 mg 4 mg Q6H PRN IV NAUSEA AND/OR VOMITING; Start 01/23/17 at 15:00 Potassium Chloride/Dextrose/ Sod Cl (D5-NS + KCl 20 Meq) 1,000 ml @ 100 mls/hr Q10H IV Last administered on 01/24/17 03:00; Admin Dose 100 MLS/HR; Start at 14:42 Enoxaparin Sodium (Lovenox) 40 mg DAILY@07 SC Last administered on 01/24/17 08:49; Admin Dose 40 MG; Start 01/24/17 at 07:00 FRANCOIS KIRKLAND MD Jan 24, 2017 11:39
[2017-01-24] MEDS: HYDROCODONE/APAP (5/325) TAB PO PRN (12:14)
[2017-01-24] MEDS ORDERED: POLYETHYLENE GLYCOL 17 GM PACKET PO ONE (12:30)
[2017-01-24 15:23] VITALS: BP 154/65; RESP 20
--- NOTE | 2017-01-24 18:52 | RADRPT ---
Vent Rate: 64 bpm RR Interval: 0 msec MN Interval: 152 msec QRS Duration: 86 msec QT Interval: 398 msec QTC Interval: 410 msec P-R-T [place]: 51 - 62 - 54 degrees Normal sinus rhythm Normal ECG Electronically Signed By: Talha Vernon [id number]
[2017-01-24 19:29] VITALS: BP 130/60; PULSE 60; RESP 18
[2017-01-24 20:09] LABS: HEMATOCRIT 25.3 % (37.0-47.0); HEMOGLOBIN 8.7 g/dl (12.0-16.0)
[2017-01-24 20:23] VITALS: BP 132/59; RESP 19
[2017-01-25 02:34] VITALS: BP 147/68; RESP 20
[2017-01-25] MEDS: KETOROLAC 15 MG INJ IV SCH ×2 (02:34→08:46)
[2017-01-25 05:48] LABS: BASOPHILS % 0.5 % (0.0-2.0); EOSINOPHILS # 0.2 10^3/ul (0.0-0.5); EOSINOPHILS % 2.1 % (0.0-7.0); HEMATOCRIT 30.2 % (37.0-47.0); HEMOGLOBIN 9.8 g/dl (12.0-16.0); LYMPHOCYTES # 1.7 10^3/ul (0.8-2.9); LYMPHOCYTES % 20.8 % (15.0-51.0); MEAN CORPUSCULAR HEMOGLOBIN 30.2 pg (29.0-33.0); MEAN CORPUSCULAR HGB CONC 32.5 g/dl (32.0-37.0); MEAN CORPUSCULAR VOLUME 93.2 fl (82.0-101.0); MEAN PLATELET VOLUME 11.3 fl (7.4-10.4); MONOCYTE # 0.4 10^3/ul (0.3-0.9); MONOCYTES % 5.3 % (0.0-11.0); NEUTROPHIL # 5.7 10^3/ul (1.6-7.5); NEUTROPHILS % 70.9 % (39.0-77.0); PLATELET COUNT 178 10^3/UL (140-415); RED BLOOD COUNT 3.24 10^6/ul (4.20-5.40); RED CELL DISTRIBUTION WIDTH 13.2 % (11.5-14.5)
[2017-01-25 06:01] LABS: POSITIVE DIFF @See below
[2017-01-25] MEDS: PIPER-TAZO 3.375 GM IV (PMX) 50 ML IVPB SCH ×2 (06:07→13:42)
[2017-01-25] MEDS: D5-NS + KCL 20 MEQ 1,000 ML IV SCH ×2 (06:13→15:23)
[2017-01-25] MEDS: ENOXAPARIN 40 MG/0.4 ML SYG SC SCH (06:13)
--- NOTE | 2017-01-25 07:29 | PN ---
Date/Time of Note Date/Time of Note DATE: 01/25/17 TIME: 07:27 Assessment/Plan Lines/Catheters IV Catheter Type (from Nrsg): Saline Lock [place] in Place (from Nrsg): No Assessment/Plan Chief Complaint/Hosp Course Postop day #2 status post lap appendectomy Patient doing well and is okay for discharge. Hematocrit stable No need for antibiotics. Follow-up in my office in 2 weeks. Instructions and prescriptions given. Problems: Subjective 24 Hr Interval Summary Constitutional: BM, ambulates, flatus, improved, no complaints Feeding: advancing diet Pain Control: well controlled Exam/Review of Systems Vital Signs Vitals Vital Signs Date Time Temp Pulse Resp B/P Pulse Ox O2 Delivery O2 Flow Rate FiO2 01/25/17 02:34 98.6 59 20 147/68 100 01/24/17 19:29 Room Air Intake and Output 01/24/17 01/24/17 01/25/17 15:00 23:00 07:00 Intake Total 1500 ml 1150 ml Output Total 1000 ml Balance 1500 ml 150 ml Exam Constitutional: alert, oriented, well developed Psych: no complaints Neck: supple Respiratory: clear to auscultation Cardiovascular: regular rate and rhythm Gastrointestinal: non-tender, soft Results Result Diagram: 01/25/17 0445 01/24/17 0440 JARED CARL MD Jan 25, 2017 07:28
[2017-01-25 07:52] VITALS: BP 169/74; RESP 17
[2017-01-25] MEDS: GEMFIBROZIL 600 MG TAB PO SCH (08:41)
[2017-01-25] MEDS: ASCORBIC ACID 500 MG TAB PO SCH (08:41)
[2017-01-25] MEDS: HYDROCODONE/APAP (5/325) TAB PO PRN ×2 (08:44→15:30)
[2017-01-25] MEDS: FAMOTIDINE 20 MG INJ IV SCH (08:45)
[2017-01-25] MEDS: SALMETEROL/FLUTICASONE 250/50 INHA INH SCH (08:46)
[2017-01-25] MEDS ORDERED: IBUPROFEN 600 MG TAB PO PRN (09:30)
--- NOTE | 2017-01-25 11:06 | PN ---
Date/Time of Note Date/Time of Note DATE: 01/25/17 TIME: 11:05 Assessment/Plan VTE Prophylaxis VTE Prophylaxis Intervention: ambulation Lines/Catheters IV Catheter Type (from Nrsg): Saline Lock Urinary Cath still in place: No Assessment/Plan Assessment/Plan 1. gi: pod #2 appy, still with abdo pain, but stable 2. hgb and wbc stable, d/c home Subjective 24 Hr Interval Summary Free Text/Dictation no complaint, still with abdominal pain tolerating eating adn ambulation Exam/Review of Systems Vital Signs Vitals Vital Signs Date Time Temp Pulse Resp B/P Pulse Ox O2 Delivery O2 Flow Rate FiO2 01/25/17 07:52 98.4 57 17 169/74 99 01/24/17 19:29 Room Air Intake and Output 01/24/17 01/24/17 01/25/17 15:00 23:00 07:00 Intake Total 1500 ml 1150 ml Output Total 1000 ml Balance 1500 ml 150 ml Exam nad, rr, ctab, tender in lower abdo jessica Results Result Diagram: 01/25/17 0445 01/24/17 0440 Results 24 hrs Laboratory Tests Test 01/24/17 19:49 01/25/17 04:45 Hemoglobin 8.7 L 9.8 L Hematocrit 25.3 L 30.2 L White Blood Count 8.0 # Red Blood Count 3.24 L Mean Corpuscular Volume 93.2 Mean Corpuscular Hemoglobin 30.2 Mean Corpuscular Hemoglobin Concent 32.5 Red Cell Distribution Width 13.2 Platelet Count 178 Mean Platelet Volume 11.3 H Neutrophils % 70.9 Lymphocytes % 20.8 Monocytes % 5.3 Eosinophils % 2.1 Basophils % 0.5 Nucleated Red Blood Cells % 0.0 Neutrophils # 5.7 Lymphocytes # 1.7 Monocytes # 0.4 Eosinophils # 0.2 Basophils # 0.0 Nucleated Red Blood Cells # 0.0 Medications Medications Current Medications Acetaminophen (Tylenol Tab) 650 mg Q6H PRN PO PAIN LEVEL 1-3 OR FEVER Last administered on 01/23/17 11:34; Admin Dose 650 MG; Start 01/23/17 at 04:00 Acetaminophen/ Hydrocodone Bitart ([place] (5/325)) 1 tab Q6H PRN PO MODERATE PAIN LEVEL 4-6 Last administered on 12/17/17at 08:44; Admin Dose 1 TAB; Start 01/23/17 at 04:00 Famotidine (Pepcid Iv) 20 mg Q12 IV Last administered on 01/25/17 08:45; Admin Dose 20 MG; Start 01/23/17 at 04:00 Ascorbic Acid (Vitamin C) 500 mg DAILY PO Last administered on 01/25/17 08:41 ; Admin Dose 500 MG; Start 01/23/17 at 09:00 Gemfibrozil 600 mg 600 mg DAILY PO Last administered on 01/25/17 08:41; Admin Dose 600 MG; Start 01/23/17 at 09:00 Piperacillin Sod/ Tazobactam Sod (Zosyn 3.375gm/ 50 ml (Pmx)) 50 ml @ 100 mls/ hr Q8 IVPB Last administered on 01/25/17 06:07; Admin Dose 100 MLS/HR; Start 01/23/17 at 11:00 Ondansetron HCl (Zofran Inj) 4 mg Q6H PRN IV NAUSEA AND/OR VOMITING; Start at 11:00 Morphine Sulfate (morphine) 2 mg Q4H PRN IV SEVERE PAIN LEVEL 7-10; Start at 11:00 Docusate Sodium (Colace) 100 mg Q12H PRN PO CONSTIPATION; Start 01/23/17 at 11 :00 Magnesium Hydroxide (Milk Of Mag) 30 ml DAILY PRN PO CONSTIPATION; Start 01/23 at 11:00 Bisacodyl (Dulcolax Supp) 10 mg DAILY PRN [place] CONSTIPATION; Start 01/23/17 at 11:00 Salmeterol Xinafoate/ Fluticasone (Advair 250/50 Diskus) 1 inh BID INH ; Start 01/23/17 at 21:00 Morphine Sulfate (morphine) 2 mg Q2H PRN IV PAIN LEVEL 6-10; Start 01/23/17 at 15:00 Oxycodone/ Acetaminophen (Percocet (5/ 325)) 1 tab Q6H PRN PO PAIN LEVEL 6-10; Start 01/23/17 at 15:00 Acetaminophen (Tylenol Tab) 650 mg Q6H PRN PO PAIN AND OR ELEVATED TEMP; Start 01/23/17 at 15:00 Ibuprofen (Motrin) 600 mg Q6H PRN PO PAIN LEVEL 1-5; Start 01/25/17 at 09:30 Ondansetron HCl 4 mg 4 mg Q6H PRN IV NAUSEA AND/OR VOMITING; Start 01/23/17 at 15:00 Potassium Chloride/Dextrose/ Sod Cl (D5-NS + KCl 20 Meq) 1,000 ml @ 100 mls/hr Q10H IV Last administered on 01/24/17 03:00; Admin Dose 100 MLS/HR; Start at 14:42 Enoxaparin Sodium (Lovenox) 40 mg DAILY@07 SC Last administered on 01/25/17 06:13; Admin Dose 40 MG; Start 01/24/17 at 07:00 FRANCOIS KIRKLAND MD Jan 25, 2017 11:06
--- NOTE | 2017-01-25 11:08 | PDOCDIS ---
Discharge Instructions CONDITION Patient Condition: Good HOME CARE INSTRUCTIONS: Diet Instructions: RegularSpecial Diet: regular ACTIVITY: Activity Restrictions: Slowly Increase Activity Rest between Activity Avoid heavy lifting Bathing Restrictions: Shower OTHER ORDERS: Other Orders: 1. follow up with dr bland in 1 week 2. slowly increase activity 3. follow up with primary care in 1 week 4. pain medications cause constipation, if this happens take additional laxatives as recommended by the pharmacist. do not go more than 24-48 hours without a bowel motion FRANCOIS KIRKLAND MD Jan 25, 2017 11:08
--- NOTE | 2017-01-25 17:07 | DS ---
DATE OF ADMISSION: 01/23/2017 DATE OF DISCHARGE: 01/25/2017 DISCHARGE DIAGNOSIS: Acute appendicitis, status post appendectomy. HOSPITAL COURSE: The patient presents to emergency room with right lower quadrant abdominal pain. CT scan confirms appendicitis. She was seen in surgical consultation by Dr. Carl and taken to the operating room for laparoscopic appendectomy. Her postoperative course is notable for laboratory t est abnormalities where her hemoglobin drops significantly; however, this is improved and stabilized at time of discharge. In addition, she complained of greater than usual amount of lower abdominal pain; however, this is not felt to represent any pathology or complication by either myself or Dr. John reddy and that the patient is recommended at this time to be discharged to home. DISCHARGE MEDICATIONS: The patient is asked to continue the following medicines without changes: 1. Albuterol. 2. Gemfibrozil. 3. Lisinopril/hydrochlorothiazide 11/20.5. 4. [place]. 5. [place]. 6. Advair. 7. Vitamin C. 8. Multivitamin. DISCHARGE DISPOSITION: Home. ACTIVITY: Increase physical activity as tolerated. DISCHARGE DIET: Increasing as tolerated to regular. DISCHARGE FOLLOWUP: With Dr. Carl in 1 week and with primary care in 1 week. SUGGESTIONS FOR FOLLOWUP CARE: 1. Ensure ongoing resolution of lower abdominal pain. 2. Ensure no further constipation with narcotic pain medications. Dictated By: FRANCOIS KIRKLAND MD RER/NTS Conf#: [id number] DID#: [id number] CC: AZEEM SPENCER MD; JARED CARL MD;*[facility]*
== END 2017-01-25 15:35 | disposition home or self-care (01) | DRG 343 ==
LOC: E/R 23:21 → MS1 01-23 03:49
PROVIDERS: ADMIT Internal Medicine; ATTEND Internal Medicine
PROC: 0DTJ4ZZ Resection of Appendix, Percutaneous Endoscopic Approach (ICD-10-PCS; principal; 2017-01-23 14:30)
DX: K35.80 Unspecified acute appendicitis (principal); I10 Essential (primary) hypertension; J45.909 Unspecified asthma, uncomplicated; E78.5 Hyperlipidemia, unspecified; Z85.3 Personal history of malignant neoplasm of breast
CPT/HCPCS: 36415; 71010; 74176; 80048; 80053; 81003; 83690; 83735; 84100; 85014; 85018; 85025; 85610; 85730; 88304; 93005; 96361; 96374; 96375; J1100; J1170; J1650; J1885; J2250; J2270; J2405; J2543; J2710; J2765; J2795; J3480; J7030; J7042

== ENCOUNTER 2017-11-24 19:14 | Emergency (ER) | END 2017-11-24 22:08 | disposition home or self-care (01) ==